=== PATIENT | female | born 1995 | race American Indian/Alaskan Native ===

== ENCOUNTER 2020-02-16 05:31 | Emergency (ER) | payer SELFPAY ==
[2020-02-16 05:39] VITALS: BP 124/71
== END 2020-02-16 05:45 | disposition left against medical advice (07) ==
LOC: ED 05:31
DX: J02.9 Acute pharyngitis, unspecified (principal); Z53.21 Procedure and treatment not carried out due to patient leaving prior to being seen by health care provider

== ENCOUNTER 2020-02-16 14:14 | Emergency (ER) | payer SELFPAY ==
[2020-02-16] MEDS ORDERED: SODIUM CHLORIDE 0.9% 1000 ML 1,000 ML IV ONE ×2 (16:27→18:04)
[2020-02-16] MEDS ORDERED: diphenhydrAMINE 50 MG/ML VIAL IV ONE (16:27)
[2020-02-16] MEDS ORDERED: METOCLOPRAMIDE 10 MG/2 ML INJ IV ONE (16:27)
[2020-02-16] MEDS ORDERED: ONDANSETRON 4 MG/2 ML INJ IV ONE ×2 (16:27→20:35)
[2020-02-16] MEDS ORDERED: FAMOTIDINE 20 MG/2 ML INJ IV ONE (16:31)
[2020-02-16 16:41] LABS: Basophils % (Auto) 0.2 % (0.0-1.8); Eosinophils % (Auto) 0.1 % (0.0-4.3); Hematocrit 40.9 % (30.3-42.9); Hemoglobin 13.6 gm/dl (10.1-14.3); Lymphocytes # (Auto) 1.1 K/mm3 (1.2-5.4); Lymphocytes % (Auto) 18.2 % (13.4-35.0); Mean Corpuscular HGB Conc 33 % (30-34); Mean Corpuscular Volume 91 fl (79-97); Monocytes # (Auto) 0.6 K/mm3 (0.0-0.8); Monocytes % (Auto) 9.8 % (0.0-7.3); Platelet Count 177 K/mm3 (140-440); Red Blood Count 4.51 M/mm3 (3.65-5.03)
[2020-02-16 16:59] LABS: Alanine Aminotransferase 36 units/L (7-56); Albumin 4.7 g/dL (3.9-5); BUN/Creatinine Ratio 33; Blood Urea Nitrogen 26 mg/dL (7-17); Calcium 9.5 mg/dL (8.4-10.2); Hemolysis Index 8
[2020-02-16] MEDS ORDERED: D5W/0.9% NACL 1,000 ML IV SCH ×2 (17:00→21:00)
--- NOTE | 2020-02-16 17:05 | Emergency Department Report ---
ED N/V/D HPI - General Chief complaint: Nausea/Vomiting/Diarrhea Stated complaint: ABD/VOMIT/FEVER Time Seen by Provider: 02/16/20 16:25 Source: patient Mode of arrival: Ambulatory Limitations: No Limitations - History of Present Illness Initial comments: 24-year-old female with a past medical history of previous presents to the hospital with complaints of continued nausea, vomiting, and diarrhea for the past 4 to 5 days. I saw patient yesterday for the same complaint. Patient complains of vomiting with intermittent blood-streaked vomitus, p.o. intolerance despite recently prescribed Phenergan and p.o. Zofran, and continued intermitten t diarrhea. Patient having intermittent suprapubic abdominal pain without aggravating or alleviating factors. Patient also complains of soreness to her throat. No fever reported. Patient states she has not been able to eat anything the last 4 to 5 days - Related Data Home Medications Medication Instructions Recorded Confirmed Last Taken Vit Calc,Iron,Folic 1 each PO DAILY 12/03/15 03/09/16 12/01/15 09:00 [ Vitamins] 1 Previous Rx's Medication Instructions Recorded Last Taken Type Ferrous Sulfate [Feosol 325 MG tab] 325 mg PO BID #60 tablet 03/09/16 Unknown Rx HYDROcodone/APAP 5-325 [[place] 1 each PO Q6HR PRN #30 tablet 03/09/16 Unknown Rx 5/325] Ibuprofen [Motrin] 800 mg PO Q8HR PRN #30 tablet 03/09/16 Unknown Rx Vit Calc,Iron,Folic 1 each PO DAILY #30 tablet 03/09/16 Unknown Rx [ Vitamins] Ondansetron [Zofran Odt] 4 mg PO Q8HR PRN #20 tab.rapdis 02/15/20 Unknown Rx Promethazine [Phenergan] 25 mg [place] Q6HR PRN #20 supp.rect 02/15/20 Unknown Rx Famotidine [Pepcid] 20 mg PO BID #20 tablet 02/17/20 Unknown Rx Ondansetron [Zofran ODT TAB] 8 mg PO Q8HR #14 tab.rapdis 02/17/20 Unknown Rx Potassium Chloride [K-Dur] 20 meq PO QDAY #5 tablet 02/17/20 Unknown Rx Promethazine [Phenergan SUPPOS] 50 mg [place] Q6H PRN #14 supp.rect 02/17/20 Unknown Rx traMADoL [Ultram 50 MG tab] 50 mg PO Q6HR PRN #14 tablet 02/17/20 Unknown Rx Allergies Allergy/AdvReac Type Severity Reaction Status Date / Time No Known Allergies Allergy Verified 12/03/15 07:48 ED Review of Systems ROS: Stated complaint: ABD/VOMIT/FEVER Other details as noted in HPI Comment: All other systems reviewed and negative ED Past Medical Hx - Past Medical History Hx Hypertension: No Hx Heart Attack/AMI: No Hx Congestive Heart Failure: No Hx Diabetes: No Hx Deep Vein Thrombosis: No Hx Renal Disease: No Hx Sickle Cell Disease: No Hx Seizures: No Hx Asthma: No Hx COPD: No Hx HIV: No - Surgical History Additional Surgical History: - Social History Smoking Status: Never Smoker - Medications Home Medications: Home Medications Medication Instructions Recorded Confirmed Last Taken Type Vit Calc,Iron,Folic 1 each PO DAILY 12/03/15 03/09/16 12/01/15 09:00 History [ Vitamins] 1 Ferrous Sulfate [Feosol 325 MG tab] 325 mg PO BID #60 tablet 03/09/16 Unknown Rx HYDROcodone/APAP 5-325 [[place] 1 each PO Q6HR PRN #30 tablet 03/09/16 Unknown Rx 5/325] Ibuprofen [Motrin] 800 mg PO Q8HR PRN #30 tablet 03/09/16 Unknown Rx Vit Calc,Iron,Folic 1 each PO DAILY #30 tablet 03/09/16 Unknown Rx [ Vitamins] Ondansetron [Zofran Odt] 4 mg PO Q8HR PRN #20 tab.rapdis 02/15/20 Unknown Rx Promethazine [Phenergan] 25 mg [place] Q6HR PRN #20 supp.rect 02/15/20 Unknown Rx Famotidine [Pepcid] 20 mg PO BID #20 tablet 02/17/20 Unknown Rx Ondansetron [Zofran ODT TAB] 8 mg PO Q8HR #14 tab.rapdis 02/17/20 Unknown Rx Potassium Chloride [K-Dur] 20 meq PO QDAY #5 tablet 02/17/20 Unknown Rx Promethazine [Phenergan SUPPOS] 50 mg [place] Q6H PRN #14 supp.rect 02/17/20 Unknown Rx traMADoL [Ultram 50 MG tab] 50 mg PO Q6HR PRN #14 tablet 02/17/20 Unknown Rx ED Physical Exam - General Limitations: No Limitations - Other Other exam information: General: No acute distress Head: Atraumatic Eyes: normal appearance ENT: Moist mucous membranes Neck: Normal appearance, no midline tenderness Chest: Clear to auscultation bilaterally CV: Bradycardic regular rate Abdomen: Soft, normal bowel sounds, minimal suprapubic tenderness, nondistended, no rebound or guarding Back: Normal inspection Extremity: Normal inspection, full range of motion Neuro: Alert O x 3, no facial asymmetry, speech clear, no gross motor sensory deficit Psych: Appropriate behavior Skin: No rash ED Course Vital Signs 02/16/20 02/16/20 02/16/20 14:30 15:42 17:04 Temperature 98.1 F Pulse Rate 43 L 50 L 69 Respiratory 20 16 16 Rate Blood Pressure 127/65 Blood Pressure 133/65 124/82 [Left] O2 Sat by Pulse 97 96 97 Oximetry 02/16/20 02/16/20 19:45 23:18 Temperature Pulse Rate 50 L 50 L Respiratory 18 18 Rate Blood Pressure Blood Pressure 118/56 110/49 [Left] O2 Sat by Pulse 99 97 Oximetry ED Medical Decision Making - Lab Data Result diagrams: 02/16/20 16:29 02/16/20 16:29 Lab Results 02/16/20 02/16/20 02/16/20 Range/Units 16:29 16:29 16:29 WBC 5.9 (4.5-11.0) K/mm3 RBC 4.51 (3.65-5.03) M/mm3 Hgb 13.6 (10.1-14.3) gm/dl Hct 40.9 (30.3-42.9) % MCV 91 (79-97) fl MCH 30 (28-32) pg MCHC 33 (30-34) % RDW 14.0 (13.2-15.2) % Plt Count 177 (140-440) K/mm3 Lymph % (Auto) 18.2 (13.4-35.0) % [place] % (Auto) 9.8 H (0.0-7.3) % Eos % (Auto) 0.1 (0.0-4.3) % Baso % (Auto) 0.2 (0.0-1.8) % Lymph # 1.1 L (1.2-5.4) K/mm3 [place] # 0.6 (0.0-0.8) K/mm3 Eos # 0.0 (0.0-0.4) K/mm3 Baso # 0.0 (0.0-0.1) K/mm3 Seg Neutrophils % 71.7 H (40.0-70.0) % Seg Neutrophils # 4.2 (1.8-7.7) K/mm3 Sodium 139 (137-145) mmol/L Potassium 3.1 L (3.6-5.0) mmol/L Chloride 97.5 L (98-107) mmol/L Carbon Dioxide 28 (22-30) mmol/L Anion Gap 17 mmol/L BUN 26 H (7-17) mg/dL Creatinine 0.8 (0.7-1.2) mg/dL Estimated GFR > 60 ml/min BUN/Creatinine Ratio 33 % Glucose 95 (65-100) mg/dL Calcium 9.5 (8.4-10.2) mg/dL Magnesium (1.7-2.3) mg/dL Total Bilirubin 1.20 (0.1-1.2) mg/dL AST 41 H (5-40) units/L ALT 36 (7-56) units/L Alkaline Phosphatase 66 (35-129) units/L Total Protein 8.2 (6.3-8.2) g/dL Albumin 4.7 (3.9-5) g/dL Albumin/Globulin Ratio 1.3 % Lipase 22 (13-60) units/L HCG, Qual Negative (Negative) Urine Color (Yellow) Urine Turbidity (Clear) Urine pH (5.0-7.0) Ur Specific [place] (1.003-1.030) Urine Protein (Negative) mg/dL Urine Glucose (UA) (Negative) mg/dL Urine Ketones (Negative) mg/dL Urine Blood (Negative) Urine Nitrite (Negative) Urine Bilirubin (Negative) Urine Urobilinogen (<2.0) mg/dL Ur Leukocyte Esterase (Negative) Urine WBC (Auto) (0.0-6.0) /HPF Urine RBC (Auto) (0.0-6.0) /HPF U Epithel Cells (Auto) (0-13.0) /HPF Urine Mucus /HPF 02/16/20 02/16/20 Range/Units 16:34 19:44 WBC (4.5-11.0) K/mm3 RBC (3.65-5.03) M/mm3 Hgb (10.1-14.3) gm/dl Hct (30.3-42.9) % MCV (79-97) fl MCH (28-32) pg MCHC (30-34) % RDW (13.2-15.2) % Plt Count (140-440) K/mm3 Lymph % (Auto) (13.4-35.0) % [place] % (Auto) (0.0-7.3) % Eos % (Auto) (0.0-4.3) % Baso % (Auto) (0.0-1.8) % Lymph # (1.2-5.4) K/mm3 [place] # (0.0-0.8) K/mm3 Eos # (0.0-0.4) K/mm3 Baso # (0.0-0.1) K/mm3 Seg Neutrophils % (40.0-70.0) % Seg Neutrophils # (1.8-7.7) K/mm3 Sodium (137-145) mmol/L Potassium (3.6-5.0) mmol/L Chloride (98-107) mmol/L Carbon Dioxide (22-30) mmol/L Anion Gap mmol/L BUN (7-17) mg/dL Creatinine (0.7-1.2) mg/dL Estimated GFR ml/min BUN/Creatinine Ratio % Glucose (65-100) mg/dL Calcium (8.4-10.2) mg/dL Magnesium 2.30 (1.7-2.3) mg/dL Total Bilirubin (0.1-1.2) mg/dL AST (5-40) units/L ALT (7-56) units/L Alkaline Phosphatase (35-129) units/L Total Protein (6.3-8.2) g/dL Albumin (3.9-5) g/dL Albumin/Globulin Ratio % Lipase (13-60) units/L HCG, Qual (Negative) Urine Color Yellow (Yellow) Urine Turbidity Clear (Clear) Urine pH 7.0 (5.0-7.0) Ur Specific [place] 1.015 (1.003-1.030) Urine Protein <15 mg/dl (Negative) mg/dL Urine Glucose (UA) 50 (Negative) mg/dL Urine Ketones 20 (Negative) mg/dL Urine Blood Neg (Negative) Urine Nitrite Neg (Negative) Urine Bilirubin Neg (Negative) Urine Urobilinogen < 2.0 (<2.0) mg/dL Ur Leukocyte Esterase Neg (Negative) Urine WBC (Auto) 2.0 (0.0-6.0) /HPF Urine RBC (Auto) 2.0 (0.0-6.0) /HPF U Epithel Cells (Auto) 14.0 H (0-13.0) /HPF Urine Mucus Few /HPF - EKG Data -: EKG Interpreted by Me EKG shows normal: sinus rhythm, ST-T waves (no stemi) Rate: bradycardia (39) - Radiology Data Radiology results: report reviewed CT abdomen pelvis w con INDICATION: MAIN: intactable n,v 100cc Omni 300. TECHNIQUE: All CT scans at this location are performed using CT dose reduction for ALARA by means of automated exposure control. COMPARISON: None available. FINDINGS: Lung bases are clear. Gallbladder is contracted, with no obvious stones. Liver, spleen, pancreas, kidneys and adrenals are negative. Abdominal aorta is normal in size. No adenopathy. Pelvis Appendix is thought to be identified and unremarkable. 2 cm left ovarian cyst. 4.5 cm cyst in the posterior pelvis, probably right ovarian cyst. No significant free fluid. Cervix appears quite prominent. Fluid density in the endometrial canal, measuring 2.1 cm diameter. No bowel abnormalities. IMPRESSION: 1. 4.5 cm cystic mass in the posterior pelvis, possibly right ovarian cyst, but this is associated with very prominent cervix, with a prominent and fluid-filled endometrium. I would suggest pelvic ultrasound for further evaluation. ULTRASOUND PELVIS INDICATION / CLINICAL INFORMATION: Nausea, vomiting, diarrhea, pelvic pain. TECHNIQUE: Transabdominal and Transvaginal. Duplex Color Doppler used: Yes. COMPARISON: Same-day CT scan of the abdomen and pelvis FINDINGS: UTERUS: Present. - Appearance (if present): No significant abnormality. - Size in cm (if present): 8.8 x 4.3 x 4.7. - Endometrial Complex (if present): No significant abnormality.. Thickness in cm (if measured) = 0.6 - Mass lesions: None. - Additional findings: None. RIGHT ADNEXA: There are multiple normal follicles. Also a 5.2 x 3.5 x 4.7 cm thin-walled cyst with posterior acoustic enhancement and no significant internal echoes. Normal color Doppler blood flow. LEFT ADNEXA: Multiple normal small follicles are present. Normal color Doppler blood flow. FREE FLUID: None. ADDITIONAL FINDINGS: None. IMPRESSION: 1. Simple appearing cyst associated with the right ovary measures 5.2 cm in greatest dimension, likely physiologic in this young female patient. 2. No other significant abnormality. - Medical Decision Making Patient was treated in the ED for an extended amount of time greater than 10 hours received several liters of normal saline, several liters of normal saline D5, multiple antiemetics, Pepcid, p.o. and IV potassium. At time of discharge patient states that she is feeling well and is drinking fluids without difficulty. She was offered a turkey sandwich she however, she prefers to eat something softer and we do not have any other food options at this time. She did tolerate crackers. Patient offered admission if she still felt nauseated and was hesitant and wants to go home. Patient declined admission stating she feels well enough to go home. She will continue to Phenergan per ER and will be prescribed to increase dosage. She was also encouraged to take Zofran 8 mg instead of the recently prescribed 4 mg. Pepcid and KCL will also be prescribed. Pt informed of ovarian cyst (likely physiologic incidental finding) and f/u with letterpress setter advised. - Differential Diagnosis Gastroenteritis, pancreatitis, UTI, diverticulitis, appendicitis Critical Care Time: No Critical care attestation.: If time is entered above; I have spent that time in minutes in the direct care of this critically ill patient, excluding procedure time. ED Disposition Clinical Impression: Gastroenteritis, Hypokalemia, Dehydration, Right ovarian cyst Disposition: DC-01 TO HOME OR SELFCARE Is pt being admited?: No Does the pt Need Aspirin: No Condition: Stable Instructions: Ovarian Cyst (ED), Hypokalemia (ED), Gastroenteritis (ED) Additional Instructions: Take the medication as prescribed. I have increased the dose of you Zofran and Phenergan and have written for new prescriptions. In the meantime you can double your Zofran (take 8mg/2 tabs at a time) and Phenergan (take 50mg/2 suppositories) doses until you fill the new prescription. Follow-up with your doctor or doctor/clinic provided. Return if symptoms worsen as indicated by your discharge instructions. Prescriptions: Potassium Chloride [K-Dur] 20 meq PO QDAY #5 tablet Famotidine [Pepcid] 20 mg PO BID #20 tablet Promethazine [Phenergan SUPPOS] 50 mg [place] Q6H PRN #14 supp.rect PRN Reason: Nausea And Vomiting traMADoL [Ultram 50 MG tab] 50 mg PO Q6HR PRN #14 tablet PRN Reason: Pain Ondansetron [Zofran ODT TAB] 8 mg PO Q8HR #14 tab.rapdis Referrals: PRIMARY CARE, [Primary Care Provider] - 3-5 Days [facility] [Provider Group] - 3-5 Days KIMI CARDOZA MD [Staff Physician] - 3-5 Days (GI doctor ) PREMA LUNA MD [Staff Physician] - 7-10 days ([facility] ) Time of Disposition: 00:57
[2020-02-16] MEDS: POTASSIUM CHLORIDE 10 MEQ 10 MEQ/100 ML BAG IV SCH ×3 (17:32→21:09)
--- NOTE | 2020-02-16 18:24 | Cat Scan Report ---
CT abdomen pelvis w con INDICATION: MAIN: intactable n,v 100cc Omni 300. TECHNIQUE: All CT scans at this location are performed using CT dose reduction for ALARA by means of automated e xposure control. COMPARISON: None available. FINDINGS: Lung bases are clear. Gallbladder is contracted, with no obvious stones. Liver, spleen, pancreas, kid neys and adrenals are negative. Abdominal aorta is normal in size. No adenopathy. Pelvis Appendix is thought to be identified and unremarkable. 2 cm left ovarian cyst. 4.5 cm cyst in the pos terior pelvis, probably right ovarian cyst. No significant free fluid. Cervix appears quite prominent . Fluid density in the endometrial canal, measuring 2.1 cm diameter. No bowel abnormalities. IMPRESSION: 1. 4.5 cm cystic mass in the posterior pelvis, possibly right ovarian cyst, but this is associated wi th very prominent cervix, with a prominent and fluid-filled endometrium. I would suggest pelvic ultra sound for further evaluation. Signer Name: Lawrence Forde MD Signed: 02/16/2020 6:20 PM Workstation Name: [id number]
[2020-02-16 20:16] LABS: Bilirubin,Urine NEG (Negative); Blood,Urine NEG (Negative); Color,Urine Yellow (Yellow); Mucus,Urine FEW /HPF; Protein,Urine <15 mg/dL mg/dL (Negative); Urobilinogen,Urine < 2.0 mg/dL (<2.0)
[2020-02-16] MEDS ORDERED: PROMETHAZINE 25 MG TAB PO ONE (20:35)
--- NOTE | 2020-02-16 21:33 | Ultrasound Report ---
ULTRASOUND PELVIS INDICATION / CLINICAL INFORMATION: Nausea, vomiting, diarrhea, pelvic pain. TECHNIQUE: Transabdominal and Transvaginal. Duplex Color Doppler used: Yes. COMPARISON: Same-day CT scan of the abdomen and pelvis FINDINGS: UTERUS: Present. - Appearance (if present): No significant abnormality. - Size in cm (if present): 8.8 x 4.3 x 4.7. - Endometrial Complex (if present): No significant abnormality.. Thickness in cm (if measured) = 0.6 - Mass lesions: None. - Additional findings: None. RIGHT ADNEXA: There are multiple normal follicles. Also a 5.2 x 3.5 x 4.7 cm thin-walled cyst with po sterior acoustic enhancement and no significant internal echoes. Normal color Doppler blood flow. LEFT ADNEXA: Multiple normal small follicles are present. Normal color Doppler blood flow. FREE FLUID: None. ADDITIONAL FINDINGS: None. IMPRESSION: 1. Simple appearing cyst associated with the right ovary measures 5.2 cm in greatest dimension, likel y physiologic in this young female patient. 2. No other significant abnormality. Signer Name: Andrea De Santiago MD Signed: 02/16/2020 9:28 PM Workstation Name: [id number]
[2020-02-16] MEDS ORDERED: POTASSIUM CHLORIDE ER 20 MEQ TAB PO ONE (23:16)
[2020-02-17] MEDS ORDERED: METOCLOPRAMIDE 10 MG/2 ML INJ IV ONE (01:14)
[2020-02-17] MEDS ORDERED: diphenhydrAMINE 50 MG/ML VIAL IV ONE (01:14)
[2020-02-17 01:28] VITALS: BP 115/62
== END 2020-02-17 01:27 | disposition home or self-care (01) ==
LOC: ED 14:14
DX: K21.9 Gastro-esophageal reflux disease without esophagitis (principal); E86.0 Dehydration; E87.6 Hypokalemia; N83.291 Other ovarian cyst, right side; Z98.890 Other specified postprocedural states; Z79.899 Other long term (current) drug therapy
CPT/HCPCS: 36415; 74177; 76830; 76856; 80053; 81001; 83690; 83735; 84703; 85025; 93005; 96361; 96365; 96366; 96375; 96376; 99284; J1200; J2405; J2765; J3480; J7030; J7042; Q0169; Q9967; 96374

== ENCOUNTER 2020-09-04 14:31 | Emergency (ER) | payer SELFPAY ==
[2020-09-04 14:35] VITALS: BP 135/84
== END 2020-09-04 17:45 | disposition left against medical advice (07) ==
LOC: ED 14:31
DX: R07.89 Other chest pain (principal); Z53.21 Procedure and treatment not carried out due to patient leaving prior to being seen by health care provider

== ENCOUNTER 2020-09-05 04:59 | Emergency (ER) | payer SELFPAY ==
[2020-09-05 05:46] LABS: Basophils % (Auto) 0.2 % (0.0-1.8); Hematocrit 40.8 % (30.3-42.9); Hemoglobin 14.3 gm/dl (10.1-14.3); Lymphocytes # (Auto) 0.8 K/mm3 (1.2-5.4); Lymphocytes % (Auto) 8.8 % (13.4-35.0); Mean Corpuscular HGB Conc 35 % (30-34); Mean Corpuscular Volume 88 fl (79-97); Monocytes # (Auto) 0.4 K/mm3 (0.0-0.8); Monocytes % (Auto) 4.6 % (0.0-7.3); Platelet Count 265 K/mm3 (140-440); Red Blood Count 4.64 M/mm3 (3.65-5.03); Red Cell Distribution Width 13.3 % (13.2-15.2)
[2020-09-05 06:01] LABS: Alanine Aminotransferase 22 units/L (7-56); Albumin 5.3 g/dL (3.9-5); BUN/Creatinine Ratio 24; Blood Urea Nitrogen 22 mg/dL (7-17); Calcium 10.8 mg/dL (8.4-10.2); Hemolysis Index 8
[2020-09-05] MEDS ORDERED: MORPHINE 4 MG/1 ML INJ IV ONE (08:36)
[2020-09-05] MEDS ORDERED: PANTOPRAZOLE 40 MG INJ IV ONE (08:36)
[2020-09-05] MEDS ORDERED: ONDANSETRON 4 MG/2 ML INJ IV ONE (08:36)
[2020-09-05] MEDS ORDERED: diphenhydrAMINE 50 MG/ML VIAL IV ONE (10:13)
--- NOTE | 2020-09-05 10:20 | Emergency Department Report ---
ED Abdominal Pain HPI - General Chief Complaint: Nausea/Vomiting/Diarrhea Stated Complaint: CHEST PAIN, POSS CYST ON OVARIES PUI?: No Time Seen by Provider: 09/05/20 08:32 Source: patient, EMS Mode of arrival: Ambulatory Limitations: No Limitations - History of Present Illness Initial Comments: CC: chest pain, abdominal cramping HPI: THis is a 25 yo female with hx of ovarian cyst who presents with several days of burning chest pain, vomiting blood and stomach cramps. SYmptoms began 3 days ago. Has burning chest pain worse with vomiting. No radiation. Intermittent. Diffuse abdominal mild cramping. intermittent. No radiation. Has had poor appetitet. MD Complaint: abdominal pain -: Gradual, days(s) (3) Location: diffuse Radiation: chest Migration to: no migration Severity: mild Severity scale (0 -10): 10 Quality: cramping, burning Consistency: intermittent Improves With: nothing Worsens With: eating Associated Symptoms: nausea, vomiting, hematemesis - Related Data Home Medications Medication Instructions Recorded Confirmed Last Taken Vit Calc,Iron,Folic 1 each PO DAILY 12/03/15 03/09/16 12/01/15 09:00 [ Vitamins] 1 Previous Rx's Medication Instructions Recorded Last Taken Type Ferrous Sulfate [Feosol 325 MG tab] 325 mg PO BID #60 tablet 03/09/16 Unknown Rx HYDROcodone/APAP 5-325 [[place] 1 each PO Q6HR PRN #30 tablet 03/09/16 Unknown Rx 5/325] Ibuprofen [Motrin] 800 mg PO Q8HR PRN #30 tablet 03/09/16 Unknown Rx Vit Calc,Iron,Folic 1 each PO DAILY #30 tablet 03/09/16 Unknown Rx [ Vitamins] Ondansetron [Zofran Odt] 4 mg PO Q8HR PRN #20 tab.rapdis 02/15/20 Unknown Rx Promethazine [Phenergan] 25 mg [place] Q6HR PRN #20 supp.rect 02/15/20 Unknown Rx Famotidine [Pepcid] 20 mg PO BID #20 tablet 02/17/20 Unknown Rx Ondansetron [Zofran ODT TAB] 8 mg PO Q8HR #14 tab.rapdis 02/17/20 Unknown Rx Potassium Chloride [K-Dur] 20 meq PO QDAY #5 tablet 04/24/20 Unknown Rx Promethazine [Phenergan SUPPOS] 50 mg [place] Q6H PRN #14 supp.rect 02/17/20 Unknown Rx traMADoL [Ultram 50 MG tab] 50 mg PO Q6HR PRN #14 tablet 02/17/20 Unknown Rx Famotidine [Pepcid] 20 mg PO BID 15 Days #30 tablet 09/05/20 Unknown Rx Promethazine [Phenergan] 25 mg PO Q6HR PRN #10 tab 09/05/20 Unknown Rx Allergies Allergy/AdvReac Type Severity Reaction Status Date / Time No Known Allergies Allergy Verified 12/03/15 07:48 ED Review of Systems ROS: Stated complaint: CHEST PAIN, POSS CYST ON OVARIES Other details as noted in HPI Comment: All other systems reviewed and negative Constitutional: denies: fever, malaise Cardiovascular: chest pain Gastrointestinal: abdominal pain, nausea, vomiting, hematemesis ED Past Medical Hx - Past Medical History Previous Medical History?: Yes Hx Hypertension: No Hx Heart Attack/AMI: No Hx Congestive Heart Failure: No Hx Diabetes: No Hx Deep Vein Thrombosis: No Hx Renal Disease: No Hx Sickle Cell Disease: No Hx Seizures: No Hx Asthma: No Hx COPD: No Hx HIV: No Additional medical history: ovarian cyst - Surgical History Additional Surgical History: - Social History Smoking Status: Never Smoker Substance Use Type: None - Medications Home Medications: Home Medications Medication Instructions Recorded Confirmed Last Taken Type Vit Calc,Iron,Folic 1 each PO DAILY 12/03/15 03/09/16 12/01/15 09:00 History [ Vitamins] 1 Ferrous Sulfate [Feosol 325 MG tab] 325 mg PO BID #60 tablet 03/09/16 Unknown Rx HYDROcodone/APAP 5-325 [[place] 1 each PO Q6HR PRN #30 tablet 03/09/16 Unknown Rx 5/325] Ibuprofen [Motrin] 800 mg PO Q8HR PRN #30 tablet 03/09/16 Unknown Rx Vit Calc,Iron,Folic 1 each PO DAILY #30 tablet 03/09/16 Unknown Rx [ Vitamins] Ondansetron [Zofran Odt] 4 mg PO Q8HR PRN #20 tab.rapdis 02/15/20 Unknown Rx Promethazine [Phenergan] 25 mg [place] Q6HR PRN #20 supp.rect 04/22/20 Unknown Rx Famotidine [Pepcid] 20 mg PO BID #20 tablet 02/17/20 Unknown Rx Ondansetron [Zofran ODT TAB] 8 mg PO Q8HR #14 tab.rapdis 02/17/20 Unknown Rx Potassium Chloride [K-Dur] 20 meq PO QDAY #5 tablet 02/17/20 Unknown Rx Promethazine [Phenergan SUPPOS] 50 mg [place] Q6H PRN #14 supp.rect 02/17/20 Unknown Rx traMADoL [Ultram 50 MG tab] 50 mg PO Q6HR PRN #14 tablet 02/17/20 Unknown Rx Famotidine [Pepcid] 20 mg PO BID 15 Days #30 tablet 09/05/20 Unknown Rx Promethazine [Phenergan] 25 mg PO Q6HR PRN #10 tab 09/05/20 Unknown Rx ED Physical Exam - General Limitations: No Limitations General appearance: alert, in no apparent distress - Head Head exam: Present: atraumatic, normocephalic - Eye Eye exam: Present: normal appearance - ENT ENT exam: Present: mucous membranes moist - Neck Neck exam: Present: normal inspection, full ROM - Respiratory Respiratory exam: Present: normal lung sounds bilaterally. Absent: respiratory distress, wheezes, rales, rhonchi - Cardiovascular Cardiovascular Exam: Present: regular rate, normal rhythm, normal heart sounds. Absent: systolic murmur, diastolic murmur, rubs, gallop - GI/Abdominal GI/Abdominal exam: Present: soft, normal bowel sounds. Absent: distended, tenderness, guarding, rebound - Extremities Exam Extremities exam: Present: normal inspection - Neurological Exam Neurological exam: Present: alert, oriented X3 - Psychiatric Psychiatric exam: Present: normal affect, normal mood - Skin Skin exam: Present: warm, dry, intact, normal color. Absent: rash ED Course Vital Signs 09/05/20 05:11 Temperature 98.1 F Pulse Rate 51 L Respiratory 16 Rate Blood Pressure 120/72 O2 Sat by Pulse 94 Oximetry ED Medical Decision Making - Lab Data Result diagrams: 09/05/20 05:23 09/05/20 05:23 Laboratory Results - last 24 hr 09/05/20 09/05/20 09/05/20 05:23 05:23 05:23 WBC 9.2 RBC 4.64 Hgb 14.3 Hct 40.8 MCV 88 MCH 31 MCHC 35 H RDW 13.3 Plt Count 265 Lymph % (Auto) 8.8 L [place] % (Auto) 4.6 Eos % (Auto) 0.0 Baso % (Auto) 0.2 Lymph # (Auto) 0.8 L [place] # (Auto) 0.4 Eos # (Auto) 0.0 Baso # (Auto) 0.0 Seg Neutrophils % 86.4 H Seg Neutrophils # 7.9 H Sodium 138 Potassium 3.6 Chloride 100.8 Carbon Dioxide 24 Anion Gap 17 BUN 22 H Creatinine 0.9 Estimated GFR > 60 BUN/Creatinine Ratio 24 Glucose 163 H Calcium 10.8 H Total Bilirubin 0.60 AST 22 ALT 22 Alkaline Phosphatase 79 Total Protein 9.1 H Albumin 5.3 H Albumin/Globulin Ratio 1.4 Lipase 12 L HCG, Qual Negative - Medical Decision Making Ms. Hobson is a 25-year-old female with history ovarian cyst who presents with chest burning, reported hematemesis, abdominal cramping. I do not suspect life-threatening causes of chest pain. Patient is PERC negative. Normal vital signs. Clear breath sounds. I suspect GERD esophagitis. Patient able for hematemesis. No observed vomiting in the emergency department over the course of 5 hours. Patient tolerated juice after receiving medication. I do not suspect significant upper GI bleed. Diffuse nonspecific abdominal cramping. No fever or abdominal tenderness to indicate peritonitis. No leukocytosis. I do not suspect emergent causes such as ovarian torsion or appendicitis. Patient prescribed famotidine promethazine. She understands follow-up with our outpatient medicine physician. CBC chemistry within normal limits. Serum test negative Critical care attestation.: If time is entered above; I have spent that time in minutes in the direct care of this critically ill patient, excluding procedure time. ED Disposition Clinical Impression: GERD (gastroesophageal reflux disease), Abdominal pain Disposition: DC-01 TO HOME OR SELFCARE Is pt being admited?: No Does the pt Need Aspirin: No Condition: Stable Instructions: Heartburn, [id number], Abdominal Pain, Adult Prescriptions: Famotidine [Pepcid] 20 mg PO BID 15 Days #30 tablet Promethazine [Phenergan] 25 mg PO Q6HR PRN #10 tab PRN Reason: Nausea
[2020-09-05 10:40] VITALS: BP 112/65
== END 2020-09-05 10:42 | disposition home or self-care (01) ==
LOC: ED 04:59
DX: K21.9 Gastro-esophageal reflux disease without esophagitis (principal); Z79.899 Other long term (current) drug therapy
CPT/HCPCS: 36415; 80053; 83690; 84703; 85025; 96374; 96375; 99284; C9113; J1200; J2270; J2405

== ENCOUNTER 2020-09-06 08:38 | Emergency (ER) | payer SELFPAY ==
[2020-09-06 09:02] VITALS: BP 110/75
[2020-09-06] MEDS ORDERED: SODIUM CHLORIDE 0.9% 1000 ML 1,000 ML IV ONE (14:53)
[2020-09-06] MEDS ORDERED: METOCLOPRAMIDE 10 MG/2 ML INJ IV ONE (14:53)
[2020-09-06] MEDS ORDERED: diphenhydrAMINE 50 MG/ML VIAL IV ONE (14:53)
[2020-09-06 16:11] LABS: Basophils % (Auto) 0.2 % (0.0-1.8); Hematocrit 43.9 % (30.3-42.9); Hemoglobin 14.6 gm/dl (10.1-14.3); Lymphocytes # (Auto) 1.1 K/mm3 (1.2-5.4); Lymphocytes % (Auto) 13.4 % (13.4-35.0); Mean Corpuscular HGB Conc 33 % (30-34); Mean Corpuscular Volume 91 fl (79-97); Monocytes # (Auto) 0.8 K/mm3 (0.0-0.8); Monocytes % (Auto) 8.8 % (0.0-7.3); Platelet Count 222 K/mm3 (140-440); Red Blood Count 4.81 M/mm3 (3.65-5.03); Red Cell Distribution Width 13.3 % (13.2-15.2)
[2020-09-06 16:29] LABS: Alanine Aminotransferase 18 units/L (7-56); Albumin 4.2 g/dL (3.9-5); BUN/Creatinine Ratio 20; Blood Urea Nitrogen 24 mg/dL (7-17); Calcium 9.3 mg/dL (8.4-10.2); Hemolysis Index 8
--- NOTE | 2020-09-06 16:35 | Emergency Department Report ---
ED N/V/D HPI - General Chief complaint: Syncope Stated complaint: WEAKNESS, VOMITING Time Seen by Provider: 09/06/20 14:21 Source: patient, EMS Mode of arrival: Ambulatory Limitations: No Limitations - History of Present Illness Initial comments: Patient is a 25-year-old female presents emergency room with complaints of nausea, vomiting, diarrhea that began 3 days ago. She states that she has been taking Phenergan at home without much relief. She states that she has some mild abdominal cramping but denies any sharp pain. She denies any recent travel, sick contacts, recent antibiotics. She denies any fever, urinary symptoms, abnormal vaginal discharge, hematoemesis, hematochezia, melena. No past medical history. No allergies medications. She states that she has had the same exact symptoms previously in March and her symptoms improved after she received IV fluids and medications per patient. - Related Data Home Medications Medication Instructions Recorded Confirmed Last Taken Vit Calc,Iron,Folic 1 each PO DAILY 12/03/15 03/09/16 12/01/15 09:00 [ Vitamins] 1 Previous Rx's Medication Instructions Recorded Last Taken Type Ferrous Sulfate [Feosol 325 MG tab] 325 mg PO BID #60 tablet 03/09/16 Unknown Rx HYDROcodone/APAP 5-325 [[place] 1 each PO Q6HR PRN #30 tablet 03/09/16 Unknown Rx 5/325] Ibuprofen [Motrin] 800 mg PO Q8HR PRN #30 tablet 03/09/16 Unknown Rx Vit Calc,Iron,Folic 1 each PO DAILY #30 tablet 03/09/16 Unknown Rx [ Vitamins] Ondansetron [Zofran Odt] 4 mg PO Q8HR PRN #20 tab.rapdis 02/15/20 Unknown Rx Promethazine [Phenergan] 25 mg [place] Q6HR PRN #20 supp.rect 02/15/20 Unknown Rx Famotidine [Pepcid] 20 mg PO BID #20 tablet 02/17/20 Unknown Rx Ondansetron [Zofran ODT TAB] 8 mg PO Q8HR #14 tab.rapdis 02/17/20 Unknown Rx Potassium Chloride [K-Dur] 20 meq PO QDAY #5 tablet 02/17/20 Unknown Rx Promethazine [Phenergan SUPPOS] 50 mg [place] Q6H PRN #14 supp.rect 02/17/20 Unknown Rx traMADoL [Ultram 50 MG tab] 50 mg PO Q6HR PRN #14 tablet 02/17/20 Unknown Rx Famotidine [Pepcid] 20 mg PO BID 15 Days #30 tablet 09/05/20 Unknown Rx Promethazine [Phenergan] 25 mg PO Q6HR PRN #10 tab 09/05/20 Unknown Rx Allergies Allergy/AdvReac Type Severity Reaction Status Date / Time No Known Allergies Allergy Verified 12/03/15 07:48 ED Review of Systems ROS: Stated complaint: WEAKNESS, VOMITING Other details as noted in HPI Comment: All other systems reviewed and negative ED Past Medical Hx - Past Medical History Previous Medical History?: No Hx Hypertension: No Hx Heart Attack/AMI: No Hx Congestive Heart Failure: No Hx Diabetes: No Hx Deep Vein Thrombosis: No Hx Renal Disease: No Hx Sickle Cell Disease: No Hx Seizures: No Hx Asthma: No Hx COPD: No Hx HIV: No Additional medical history: ovarian cyst - Surgical History Past Surgical History?: Yes Additional Surgical History: - Social History Smoking Status: Never Smoker Substance Use Type: None - Medications Home Medications: Home Medications Medication Instructions Recorded Confirmed Last Taken Type Vit Calc,Iron,Folic 1 each PO DAILY 12/03/15 03/09/16 12/01/15 09:00 History [ Vitamins] 1 Ferrous Sulfate [Feosol 325 MG tab] 325 mg PO BID #60 tablet 03/09/16 Unknown Rx HYDROcodone/APAP 5-325 [[place] 1 each PO Q6HR PRN #30 tablet 03/09/16 Unknown Rx 5/325] Ibuprofen [Motrin] 800 mg PO Q8HR PRN #30 tablet 03/09/16 Unknown Rx Vit Calc,Iron,Folic 1 each PO DAILY #30 tablet 03/09/16 Unknown Rx [ Vitamins] Ondansetron [Zofran Odt] 4 mg PO Q8HR PRN #20 tab.rapdis 02/15/20 Unknown Rx Promethazine [Phenergan] 25 mg MO Q6HR PRN #20 supp.rect 02/15/20 Unknown Rx Famotidine [Pepcid] 20 mg PO BID #20 tablet 02/17/20 Unknown Rx Ondansetron [Zofran ODT TAB] 8 mg PO Q8HR #14 tab.rapdis 02/17/20 Unknown Rx Potassium Chloride [K-Dur] 20 meq PO QDAY #5 tablet 02/17/20 Unknown Rx Promethazine [Phenergan SUPPOS] 50 mg MO Q6H PRN #14 supp.rect 02/17/20 Unknown Rx traMADoL [Ultram 50 MG tab] 50 mg PO Q6HR PRN #14 tablet 02/17/20 Unknown Rx Famotidine [Pepcid] 20 mg PO BID 15 Days #30 tablet 09/05/20 Unknown Rx Promethazine [Phenergan] 25 mg PO Q6HR PRN #10 tab 09/05/20 Unknown Rx ED Physical Exam - General Limitations: No Limitations General appearance: alert, in no apparent distress - Head Head exam: Present: atraumatic, normocephalic - Eye Eye exam: Present: normal appearance - ENT ENT exam: Present: mucous membranes moist - Respiratory Respiratory exam: Present: normal lung sounds bilaterally. Absent: respiratory distress, wheezes, rales, rhonchi, stridor, chest wall tenderness, accessory muscle use, decreased breath sounds, prolonged expiratory - Cardiovascular Cardiovascular Exam: Present: regular rate, normal rhythm, normal heart sounds. Absent: systolic murmur, diastolic murmur, rubs, gallop - GI/Abdominal GI/Abdominal exam: Present: soft, normal bowel sounds. Absent: distended, tenderness, guarding, rebound, rigid - Neurological Exam Neurological exam: Present: alert, oriented X3 - Psychiatric Psychiatric exam: Present: normal affect, normal mood - Skin Skin exam: Present: warm, dry, intact ED Course Vital Signs 09/06/20 09/06/20 09:01 16:27 Temperature 98.3 F Pulse Rate 52 L Respiratory 20 18 Rate Blood Pressure 110/75 [Right] O2 Sat by Pulse 100 Oximetry ED Medical Decision Making - Lab Data Result diagrams: 09/06/20 15:41 09/06/20 15:41 Lab Results 09/06/20 09/06/20 09/06/20 Range/Units 15:41 15:41 15:41 WBC 8.6 (4.5-11.0) K/mm3 RBC 4.81 (3.65-5.03) M/mm3 Hgb 14.6 H (10.1-14.3) gm/dl Hct 43.9 H (30.3-42.9) % MCV 91 (79-97) fl MCH 30 (28-32) pg MCHC 33 (30-34) % RDW 13.3 (13.2-15.2) % Plt Count 222 (140-440) K/mm3 Lymph % (Auto) 13.4 (13.4-35.0) % [place] % (Auto) 8.8 H (0.0-7.3) % Eos % (Auto) 0.0 (0.0-4.3) % Baso % (Auto) 0.2 (0.0-1.8) % Lymph # (Auto) 1.1 L (1.2-5.4) K/mm3 [place] # (Auto) 0.8 (0.0-0.8) K/mm3 Eos # (Auto) 0.0 (0.0-0.4) K/mm3 Baso # (Auto) 0.0 (0.0-0.1) K/mm3 Seg Neutrophils % 77.6 H (40.0-70.0) % Seg Neutrophils # 6.7 (1.8-7.7) K/mm3 Sodium 141 (137-145) mmol/L Potassium 3.7 (3.6-5.0) mmol/L Chloride 101.4 (98-107) mmol/L Carbon Dioxide 29 (22-30) mmol/L Anion Gap 14 mmol/L BUN 24 H (7-17) mg/dL Creatinine 1.2 (0.6-1.2) mg/dL Estimated GFR > 60 ml/min BUN/Creatinine Ratio 20 % Glucose 109 H (65-100) mg/dL Calcium 9.3 (8.4-10.2) mg/dL Total Bilirubin 0.50 (0.1-1.2) mg/dL AST 23 (5-40) units/L ALT 18 (7-56) units/L Alkaline Phosphatase 75 (35-129) units/L Total Protein 8.2 (6.3-8.2) g/dL Albumin 4.2 (3.9-5) g/dL Albumin/Globulin Ratio 1.1 % Lipase (13-60) units/L HCG, Qual Negative (Negative) 09/06/20 Range/Units 15:41 WBC (4.5-11.0) K/mm3 RBC (3.65-5.03) M/mm3 Hgb (10.1-14.3) gm/dl Hct (30.3-42.9) % MCV (79-97) fl MCH (28-32) pg MCHC (30-34) % RDW (13.2-15.2) % Plt Count (140-440) K/mm3 Lymph % (Auto) (13.4-35.0) % [place] % (Auto) (0.0-7.3) % Eos % (Auto) (0.0-4.3) % Baso % (Auto) (0.0-1.8) % Lymph # (Auto) (1.2-5.4) K/mm3 [place] # (Auto) (0.0-0.8) K/mm3 Eos # (Auto) (0.0-0.4) K/mm3 Baso # (Auto) (0.0-0.1) K/mm3 Seg Neutrophils % (40.0-70.0) % Seg Neutrophils # (1.8-7.7) K/mm3 Sodium (137-145) mmol/L Potassium (3.6-5.0) mmol/L Chloride (98-107) mmol/L Carbon Dioxide (22-30) mmol/L Anion Gap mmol/L BUN (7-17) mg/dL Creatinine (0.6-1.2) mg/dL Estimated GFR ml/min BUN/Creatinine Ratio % Glucose (65-100) mg/dL Calcium (8.4-10.2) mg/dL Total Bilirubin (0.1-1.2) mg/dL AST (5-40) units/L ALT (7-56) units/L Alkaline Phosphatase (35-129) units/L Total Protein (6.3-8.2) g/dL Albumin (3.9-5) g/dL Albumin/Globulin Ratio % Lipase 17 (13-60) units/L HCG, Qual (Negative) - EKG Data EKG shows normal: sinus rhythm, axis, intervals, QRS complexes Rate: bradycardia - EKG Data 09/06/20 16:36 no STEMI - Medical Decision Making Patient is a 25-year-old female presents emergency room with complaints of nausea, vomiting, diarrhea that began 3 days ago. She states that she has been taking Phenergan at home without much relief. She states that she has some mild abdominal cramping but denies any sharp pain. She denies any recent travel, sick contacts, recent antibiotics. She denies any fever, urinary symptoms, abnormal vaginal discharge, hematoemesis, hematochezia, melena. No past medical history. No allergies medications. She states that she has had the same exact symptoms previously in March and her symptoms improved after she received IV fluids and medications per patient. VSS. no abdominal tenderness on exam, no guarding, no rebound, no rigidity, normal bowel sounds, no peritoneal signs. Labs are normal. hCG is negative. EKG ordered prior to my examination, initially stated due to syncope, patient states that she felt lightheaded due to constant vomiting, EKG is stable. Patient given 1 L normal saline, Benadryl, Reglan and symptoms completely improved and she is feeling much better ready to go home. Patient had no further episodes of vomiting. Awaiting UA results to rule out UTI, patient did not give urine sample. When I went to discuss with patient regarding urine sample, it appears she eloped from the emergency department Symptoms are likely related to gastroenteritis, do not suspect acute emergent intra-abdominal pathology Patient eloped from the emergency department prior to completion of examination Critical care attestation.: If time is entered above; I have spent that time in minutes in the direct care of this critically ill patient, excluding procedure time. ED Disposition Clinical Impression: Nausea vomiting and diarrhea Disposition: DC- TO HOME OR SELFCARE Is pt being admited?: No Does the pt Need Aspirin: No Condition: Undetermined Instructions: Viral Gastroenteritis, Adult Referrals: PRIMARY CARE, [Primary Care Provider] - 3-5 Days
== END 2020-09-06 16:35 | disposition home or self-care (01) ==
LOC: ED 08:38
DX: R11.2 Nausea with vomiting, unspecified (principal); R19.7 Diarrhea, unspecified; R10.9 Unspecified abdominal pain; Z98.890 Other specified postprocedural states; Z79.899 Other long term (current) drug therapy
CPT/HCPCS: 36415; 80053; 83690; 84703; 85025; 93005; 96361; 96374; 96375; 99284; J1200; J2765; J7030

== ENCOUNTER 2021-08-16 05:56 | Emergency (ER) | payer MEDICAID ==
[2021-08-16] MEDS ORDERED: SODIUM CHLORIDE 0.9% 1000 ML 1,000 ML IV ONE ×2 (06:59→09:57)
[2021-08-16] MEDS ORDERED: ONDANSETRON 4 MG/2 ML INJ IV ONE ×2 (06:59→08:51)
[2021-08-16] MEDS ORDERED: diphenhydrAMINE 50 MG/ML VIAL IV ONE (06:59)
--- NOTE | 2021-08-16 07:01 | Emergency Department Report ---
HPI - General Chief Complaint: Nausea/Vomiting/Diarrhea Time Seen by Provider: 08/16/21 06:55 - HPI HPI: 26-year-old -[place] female presents to the emergency department via EMS from home with complaint of nausea and vomiting continuously since last night. She denies any fever, abdominal pain, dysuria, vaginal bleeding or discharge, back pain. She denies any past medical history other than a history of ovarian cysts and she has previous . She has not taken anything for symptoms prior to presentation. The patient has been seen for this set of symptoms multiple times in the past but denies ever having been given a diagnosis or central hospital outpatient follow-up with GI. She denies any heavy marijuana use. No recent travel or sick contacts at home. She is not vaccinated against COVID-19. ED Past Medical Hx - Past Medical History Hx Hypertension: No Hx Heart Attack/AMI: No Hx Congestive Heart Failure: No Hx Diabetes: No Hx Deep Vein Thrombosis: No Hx Renal Disease: No Hx Sickle Cell Disease: No Hx Seizures: No Hx Asthma: No Hx COPD: No Hx HIV: No Additional medical history: ovarian cyst - Surgical History Additional Surgical History: - Social History Smoking Status: Never Smoker Substance Use Type: None - Medications Home Medications: Home Medications Medication Instructions Recorded Confirmed Last Taken Type Vit Calc,Iron,Folic 1 each PO DAILY 12/03/15 03/09/16 12/01/15 09:00 History [ Vitamins] 1 Ferrous Sulfate [Feosol 325 MG tab] 325 mg PO BID #60 tablet 03/09/16 Unknown Rx HYDROcodone/APAP 5-325 [[place] 1 each PO Q6HR PRN #30 tablet 03/09/16 Unknown Rx 5/325] Ibuprofen [Motrin] 800 mg PO Q8HR PRN #30 tablet 03/09/16 Unknown Rx Vit Calc,Iron,Folic 1 each PO DAILY #30 tablet 03/09/16 Unknown Rx [ Vitamins] Promethazine [Phenergan] 25 mg [place] Q6HR PRN #20 supp.rect 02/15/20 Unknown Rx Famotidine [Pepcid] 20 mg PO BID #20 tablet 02/17/20 Unknown Rx Ondansetron [Zofran ODT TAB] 8 mg PO Q8HR #14 tab.rapdis 02/17/20 Unknown Rx Potassium Chloride [K-Dur] 20 meq PO QDAY #5 tablet 02/17/20 Unknown Rx Promethazine [Phenergan SUPPOS] 50 mg [place] Q6H PRN #14 supp.rect 02/17/20 Unknown Rx traMADoL [Ultram 50 MG tab] 50 mg PO Q6HR PRN #14 tablet 02/17/20 Unknown Rx Famotidine [Pepcid] 20 mg PO BID 15 Days #30 tablet 09/05/20 Unknown Rx Ondansetron [Zofran ODT TAB] 4 mg PO Q8HR PRN #15 tab.rapdis 08/16/21 Unknown Rx Promethazine [Phenergan] 25 mg PO Q6HR PRN #12 tab 08/16/21 Unknown Rx ED Review of Systems ROS: Stated complaint: VOMITING Other details as noted in HPI Comment: All other systems reviewed and negative Constitutional: weakness. denies: chills, fever Eyes: denies: eye pain, vision change ENT: denies: ear pain, throat pain Respiratory: denies: cough, shortness of breath Cardiovascular: denies: chest pain, palpitations Gastrointestinal: nausea, vomiting Genitourinary: denies: dysuria, discharge Musculoskeletal: denies: back pain, arthralgia Skin: denies: rash, lesions Neurological: denies: headache, numbness Physical Exam - Physical Exam Vital Signs: Vital Signs 08/16/21 08/16/21 06:52 06:56 Temperature 97.9 F Pulse Rate 39 L 54 L Respiratory 16 14 Rate Blood Pressure 138/75 129/74 [Left] O2 Sat by Pulse 100 100 Oximetry Physical Exam: GENERAL: The patient is well-developed well-nourished. HENT: Normocephalic. Atraumatic. Patient has moist mucous membranes. EYES: Extraocular motions are intact. NECK: Supple. Trachea is midline. CHEST/LUNGS: Clear to auscultation. There is no respiratory distress noted. HEART/CARDIOVASCULAR: Regular. There is no tachycardia. There is no murmur. ABDOMEN: Abdomen is soft, nontender. Patient has normal bowel sounds. There is no abdominal distention. SKIN: Skin is warm and dry. NEURO: The patient is awake, alert, and oriented. The patient is cooperative. Normal speech. MUSCULOSKELETAL: There is no tenderness or deformity. There is no limitation range of motion. ED Course Vital Signs 08/16/21 08/16/21 06:52 06:56 Temperature 97.9 F Pulse Rate 39 L 54 L Respiratory 16 14 Rate Blood Pressure 138/75 129/74 [Left] O2 Sat by Pulse 100 100 Oximetry ED Medical Decision Making - Lab Data Result diagrams: 08/16/21 08:00 08/16/21 06:59 Lab Results 08/16/21 08/16/21 08/16/21 Range/Units 06:59 08:00 08:00 WBC 6.5 (4.5-11.0) K/mm3 RBC 4.11 (3.65-5.03) M/mm3 Hgb 12.3 (10.1-14.3) gm/dl Hct 37.4 (30.3-42.9) % MCV 91 (79-97) fl MCH 30 (28-32) pg MCHC 33 (30-34) % RDW 13.7 (13.2-15.2) % Plt Count 218 (140-440) K/mm3 Lymph % (Auto) 13.3 L (13.4-35.0) % [place] % (Auto) 4.0 (0.0-7.3) % Eos % (Auto) 0.5 (0.0-4.3) % Baso % (Auto) 0.6 (0.0-1.8) % Lymph # (Auto) 0.9 L (1.2-5.4) K/mm3 [place] # (Auto) 0.3 (0.0-0.8) K/mm3 Eos # (Auto) 0.0 (0.0-0.4) K/mm3 Baso # (Auto) 0.0 (0.0-0.1) K/mm3 Seg Neutrophils % 81.6 H (40.0-70.0) % Seg Neutrophils # 5.3 (1.8-7.7) K/mm3 Sodium 139 (137-145) mmol/L Potassium 3.7 (3.6-5.0) mmol/L Chloride 100.0 (98-107) mmol/L Carbon Dioxide 25 (22-30) mmol/L Anion Gap 18 mmol/L BUN 10 (7-17) mg/dL Creatinine 0.8 (0.6-1.2) mg/dL Estimated GFR > 60 ml/min BUN/Creatinine Ratio 13 % Glucose 157 H (65-100) mg/dL Calcium 9.4 (8.4-10.2) mg/dL Total Bilirubin 0.30 (0.1-1.2) mg/dL AST 21 (5-40) units/L ALT 17 (7-56) units/L Alkaline Phosphatase 63 (35-129) units/L Total Protein 7.0 (6.3-8.2) g/dL Albumin 4.4 (3.9-5) g/dL Albumin/Globulin Ratio 1.7 % Lipase 20 (13-60) units/L HCG, Qual Negative (Negative) - Medical Decision Making This patient presents to the emergency department with a complaint of nausea with vomiting. She denies any abdominal pain. The patient is seen actively vomiting, but otherwise does not appear in any acute distress. An IV was placed and the patient was given IV fluid resuscitation and a total of 3 antiemetics over her ED course. Labs have been unremarkable thus far including CBC, metabolic panel, lipase, and the patient is not . The patient has not left a urine sample for us for UDS or urinalysis. Vital signs have been reassuring throughout her ED course. The patient has been able to pass an oral challenge without any return of nausea vomiting. The patient was to be discharged home with prescriptions for antiemetics, but the patient left the emergency department without her discharge paperwork or prescriptions. Critical Care Time: No Critical care attestation.: If time is entered above; I have spent that time in minutes in the direct care of this critically ill patient, excluding procedure time. ED Disposition Clinical Impression: Nausea & vomiting Qualifiers: Vomiting type: unspecified Vomiting Intractability: non-intractable Qualified Code(s): R11.2 - Nausea with vomiting, unspecified Disposition: 01 HOME / SELF CARE / HOMELESS Is pt being admited?: No Condition: Stable Instructions: Nausea and Vomiting, Adult Additional Instructions: Please follow-up with a primary care physician in the next few days. Increase your oral rehydration. You have been prescribed a medication that is sedating and therefore should not be taken prior to driving, working, and responsible for children and in no way should be mixed with alcohol of any quantity. Return to the emergency department with any worsening of your symptoms, new or concerning symptoms not addressed during this current emergency department visit, or with any acute distress. Prescriptions: Promethazine [Phenergan] 25 mg PO Q6HR PRN #12 tab PRN Reason: Nausea Ondansetron [Zofran ODT TAB] 4 mg PO Q8HR PRN #15 tab.rapdis PRN Reason: Nausea And Vomiting Referrals: PRIMARY CARE,MD [Primary Care Provider] - 2-3 Days Time of Disposition: 10:48
[2021-08-16 08:16] LABS: Basophils % (Auto) 0.6 % (0.0-1.8); Eosinophils % (Auto) 0.5 % (0.0-4.3); Hematocrit 37.4 % (30.3-42.9); Hemoglobin 12.3 gm/dl (10.1-14.3); Lymphocytes # (Auto) 0.9 K/mm3 (1.2-5.4); Lymphocytes % (Auto) 13.3 % (13.4-35.0); Mean Corpuscular HGB Conc 33 % (30-34); Mean Corpuscular Volume 91 fl (79-97); Monocytes # (Auto) 0.3 K/mm3 (0.0-0.8); Platelet Count 218 K/mm3 (140-440); Red Blood Count 4.11 M/mm3 (3.65-5.03); Red Cell Distribution Width 13.7 % (13.2-15.2)
[2021-08-16 08:38] LABS: Alanine Aminotransferase 17 units/L (7-56); Albumin 4.4 g/dL (3.9-5); BUN/Creatinine Ratio 13; Blood Urea Nitrogen 10 mg/dL (7-17); Calcium 9.4 mg/dL (8.4-10.2); Hemolysis Index 23
[2021-08-16] MEDS ORDERED: METOCLOPRAMIDE 10 MG/2 ML INJ IV ONE (09:57)
[2021-08-16 11:11] VITALS: BP 126/66
== END 2021-08-16 11:46 | disposition home or self-care (01) ==
LOC: ED 05:56
DX: R11.2 Nausea with vomiting, unspecified (principal)
CPT/HCPCS: 36415; 80053; 83690; 84703; 85025; 96361; 96374; 96375; 96376; 99284; J1200; J2405; J2765; J7030

== ENCOUNTER 2021-08-17 23:21 | Emergency (ER) | payer SELFPAY ==
[2021-08-17] MEDS ORDERED: ONDANSETRON 4 MG/2 ML INJ IV ONE (23:33)
[2021-08-18] MEDS ORDERED: FAMOTIDINE 20 MG/2 ML INJ IV ONE
[2021-08-18] MEDS ORDERED: SODIUM CHLORIDE 0.9% 1000 ML 1,000 ML ONE (00:06)
[2021-08-18 00:23] LABS: Basophils % (Auto) 0.4 % (0.0-1.8); Eosinophils % (Auto) 0.1 % (0.0-4.3); Hematocrit 35.6 % (30.3-42.9); Hemoglobin 11.7 gm/dl (10.1-14.3); Lymphocytes % (Auto) 16.9 % (13.4-35.0); Mean Corpuscular HGB Conc 33 % (30-34); Mean Corpuscular Volume 92 fl (79-97); Monocytes # (Auto) 0.6 K/mm3 (0.0-0.8); Monocytes % (Auto) 9.5 % (0.0-7.3); Platelet Count 183 K/mm3 (140-440); Red Blood Count 3.87 M/mm3 (3.65-5.03); Red Cell Distribution Width 14.2 % (13.2-15.2)
[2021-08-18] MEDS ORDERED: diphenhydrAMINE 50 MG/ML VIAL IV ONE (00:23)
[2021-08-18] MEDS ORDERED: METOCLOPRAMIDE 10 MG/2 ML INJ IV ONE (00:24)
--- NOTE | 2021-08-18 00:27 | Emergency Department Report ---
ED N/V/D HPI - General Chief complaint: Nausea/Vomiting/Diarrhea Stated complaint: VOMITING Time Seen by Provider: 08/18/21 00:15 Source: patient Mode of arrival: Stretcher Limitations: No Limitations - History of Present Illness Initial comments: 26-year-old female with past medical history of , ovarian cyst, and vomiting episodes presents to the hospital complaint of nausea, vomiting and p.o. intolerance for 5 days. Patient is now seeing intermittent blood in her vomitus. She has not had a bowel movement in 4 to 5 days. She denies fever. She complains of burning pain to her throat with vomiting. No specific stomach pain reported. Patient feeling weak and dizzy. Patient was here yesterday for the same symptoms. Discharged on Zofran and Phenergan. Patient states she did not receive these prescriptions and therefore did not take any meds since discharge. Labs from previous visit unremarkable. Patient denies receive any imaging studies at that time. negative. Patient requesting Benadryl to go to sleep and to help with her anxiety in addition to IV fluid antiemetics. Patient presented had similar episodes of in the past but has not been seen by GI specialist. Denied marijuana use MD complaint: nausea - Related Data Home Medications Medication Instructions Recorded Confirmed Last Taken Vit Calc,Iron,Folic 1 each PO DAILY 12/03/15 03/09/16 12/01/15 09:00 [ Vitamins] 1 Previous Rx's Medication Instructions Recorded Last Taken Type Ferrous Sulfate [Feosol 325 MG tab] 325 mg PO BID #60 tablet 03/09/16 Unknown Rx HYDROcodone/APAP 5-325 [[place] 1 each PO Q6HR PRN #30 tablet 03/09/16 Unknown Rx 5/325] Ibuprofen [Motrin] 800 mg PO Q8HR PRN #30 tablet 03/09/16 Unknown Rx Vit Calc,Iron,Folic 1 each PO DAILY #30 tablet 03/09/16 Unknown Rx [ Vitamins] Promethazine [Phenergan] 25 mg ME Q6HR PRN #20 supp.rect 02/15/20 Unknown Rx Famotidine [Pepcid] 20 mg PO BID #20 tablet 02/17/20 Unknown Rx Ondansetron [Zofran ODT TAB] 8 mg PO Q8HR #14 tab.rapdis 02/17/20 Unknown Rx Potassium Chloride [K-Dur] 20 meq PO QDAY #5 tablet 02/17/20 Unknown Rx Promethazine [Phenergan SUPPOS] 50 mg ME Q6H PRN #14 supp.rect 02/17/20 Unknown Rx traMADoL [Ultram 50 MG tab] 50 mg PO Q6HR PRN #14 tablet 02/17/20 Unknown Rx Famotidine [Pepcid] 20 mg PO BID 15 Days #30 tablet 09/05/20 Unknown Rx Ondansetron [Zofran ODT TAB] 4 mg PO Q8HR PRN #15 tab.rapdis 08/16/21 Unknown Rx Promethazine [Phenergan] 25 mg PO Q6HR PRN #12 tab 08/16/21 Unknown Rx Famotidine [Pepcid] 20 mg PO BID #20 tablet 08/18/21 Unknown Rx Promethazine [Phenergan] 25 mg ME Q6HR PRN #20 supp.rect 08/18/21 Unknown Rx Allergies Allergy/AdvReac Type Severity Reaction Status Date / Time No Known Allergies Allergy Verified 08/17/21 23:28 ED Review of Systems ROS: Stated complaint: VOMITING Other details as noted in HPI Comment: All other systems reviewed and negative ED Past Medical Hx - Past Medical History Hx Hypertension: No Hx Heart Attack/AMI: No Hx Congestive Heart Failure: No Hx Diabetes: No Hx Deep Vein Thrombosis: No Hx Renal Disease: No Hx Sickle Cell Disease: No Hx Seizures: No Hx Asthma: No Hx COPD: No Hx HIV: No Additional medical history: ovarian cyst - Surgical History Additional Surgical History: - Social History Smoking Status: Never Smoker Substance Use Type: None - Medications Home Medications: Home Medications Medication Instructions Recorded Confirmed Last Taken Type Vit Calc,Iron,Folic 1 each PO DAILY 12/03/15 03/09/16 12/01/15 09:00 History [ Vitamins] 1 Ferrous Sulfate [Feosol 325 MG tab] 325 mg PO BID #60 tablet 03/09/16 Unknown Rx HYDROcodone/APAP 5-325 [[place] 1 each PO Q6HR PRN #30 tablet 03/09/16 Unknown Rx 5/325] Ibuprofen [Motrin] 800 mg PO Q8HR PRN #30 tablet 03/09/16 Unknown Rx Vit Calc,Iron,Folic 1 each PO DAILY #30 tablet 03/09/16 Unknown Rx [ Vitamins] Promethazine [Phenergan] 25 mg ME Q6HR PRN #20 supp.rect 02/15/20 Unknown Rx Famotidine [Pepcid] 20 mg PO BID #20 tablet 02/17/20 Unknown Rx Ondansetron [Zofran ODT TAB] 8 mg PO Q8HR #14 tab.rapdis 02/17/20 Unknown Rx Potassium Chloride [K-Dur] 20 meq PO QDAY #5 tablet 02/17/20 Unknown Rx Promethazine [Phenergan SUPPOS] 50 mg ME Q6H PRN #14 supp.rect 02/17/20 Unknown Rx traMADoL [Ultram 50 MG tab] 50 mg PO Q6HR PRN #14 tablet 02/17/20 Unknown Rx Famotidine [Pepcid] 20 mg PO BID 15 Days #30 tablet 09/05/20 Unknown Rx Ondansetron [Zofran ODT TAB] 4 mg PO Q8HR PRN #15 tab.rapdis 08/16/21 Unknown Rx Promethazine [Phenergan] 25 mg PO Q6HR PRN #12 tab 08/16/21 Unknown Rx Famotidine [Pepcid] 20 mg PO BID #20 tablet 08/18/21 Unknown Rx Promethazine [Phenergan] 25 mg ME Q6HR PRN #20 supp.rect 08/18/21 Unknown Rx ED Physical Exam - General Limitations: No Limitations - Other Other exam information: General: No acute distress Head: Atraumatic Eyes: normal appearance ENT: Moist mucous membranes Neck: Normal appearance, no midline tenderness Chest: Clear to auscultation bilaterally CV: Regular rate and rhythm Abdomen: Soft, normal bowel sounds, nontender, nondistended, no rebound or guarding. Abdomen nontender but palpation induces nausea Back: Normal inspection Extremity: Normal inspection, full range of motion Neuro: Alert O x 3, no facial asymmetry, speech clear, no gross motor sensory deficit Psych: Appropriate behavior Skin: No rash ED Course Vital Signs 08/17/21 08/17/21 08/17/21 23:27 23:39 23:45 Temperature 99.2 F Pulse Rate 48 L 57 L 48 L Respiratory 18 16 Rate Blood Pressure 121/67 Blood Pressure 144/78 [Right] O2 Sat by Pulse 100 99 Oximetry 08/18/21 08/18/21 08/18/21 00:01 00:15 00:27 Temperature Pulse Rate Respiratory Rate Blood Pressure 129/55 124/56 Blood Pressure [Right] O2 Sat by Pulse 99 82 L 99 Oximetry 08/18/21 08/18/21 08/18/21 00:31 00:45 01:01 Temperature Pulse Rate 45 L 42 L Respiratory 15 20 22 Rate Blood Pressure 138/48 138/48 124/56 Blood Pressure [Right] O2 Sat by Pulse 97 98 93 Oximetry 08/18/21 08/18/21 08/18/21 01:15 01:31 01:45 Temperature Pulse Rate 45 L 45 L 47 L Respiratory 17 17 18 Rate Blood Pressure 134/51 138/48 138/48 Blood Pressure [Right] O2 Sat by Pulse 100 100 99 Oximetry 08/18/21 02:01 Temperature Pulse Rate Respiratory 15 Rate Blood Pressure 138/48 Blood Pressure [Right] O2 Sat by Pulse 98 Oximetry - Reevaluation(s) Reevaluation #1: 08/18/21 01:09 Patient informed not to eat or drink anything but keeps disconnecting herself on the monitor and trying to swallow water from the sink. ED Medical Decision Making - Lab Data Result diagrams: 08/17/21 23:56 08/17/21 23:56 Lab Results 08/17/21 08/17/21 08/17/21 Range/Units 23:56 23:56 23:56 WBC 6.2 (4.5-11.0) K/mm3 RBC 3.87 (3.65-5.03) M/mm3 Hgb 11.7 (10.1-14.3) gm/dl Hct 35.6 (30.3-42.9) % MCV 92 (79-97) fl MCH 30 (28-32) pg MCHC 33 (30-34) % RDW 14.2 (13.2-15.2) % Plt Count 183 (140-440) K/mm3 Lymph % (Auto) 16.9 (13.4-35.0) % [place] % (Auto) 9.5 H (0.0-7.3) % Eos % (Auto) 0.1 (0.0-4.3) % Baso % (Auto) 0.4 (0.0-1.8) % Lymph # (Auto) 1.0 L (1.2-5.4) K/mm3 [place] # (Auto) 0.6 (0.0-0.8) K/mm3 Eos # (Auto) 0.0 (0.0-0.4) K/mm3 Baso # (Auto) 0.0 (0.0-0.1) K/mm3 Seg Neutrophils % 73.1 H (40.0-70.0) % Seg Neutrophils # 4.5 (1.8-7.7) K/mm3 Sodium 143 (137-145) mmol/L Potassium 3.2 L (3.6-5.0) mmol/L Chloride 103.6 (98-107) mmol/L Carbon Dioxide 23 (22-30) mmol/L Anion Gap 20 mmol/L BUN 22 H (7-17) mg/dL Creatinine 0.8 (0.6-1.2) mg/dL Estimated GFR > 60 ml/min BUN/Creatinine Ratio 28 % Glucose 135 H (65-100) mg/dL POC Glucose (70-105) mg/dL Calcium 9.6 (8.4-10.2) mg/dL Total Bilirubin 0.70 (0.1-1.2) mg/dL AST 20 (5-40) units/L ALT 16 (7-56) units/L Alkaline Phosphatase 63 (35-129) units/L Total Protein 7.8 (6.3-8.2) g/dL Albumin 4.7 (3.9-5) g/dL Albumin/Globulin Ratio 1.5 % Lipase 11 L (13-60) units/L HCG, Quant < 2 (0-4) mIU/mL Urine Color (Yellow) Urine Turbidity (Clear) Urine pH (5.0-7.0) Ur Specific [place] (1.003-1.030) Urine Protein (Negative) mg/dL Urine Glucose (UA) (Negative) mg/dL Urine Ketones (Negative) mg/dL Urine Blood (Negative) Urine Nitrite (Negative) Urine Bilirubin (Negative) Urine Urobilinogen (<2.0) mg/dL Ur Leukocyte Esterase (Negative) Urine WBC (Auto) (0.0-6.0) /HPF Urine RBC (Auto) (0.0-6.0) /HPF U Epithel Cells (Auto) (0-13.0) /HPF Urine Bacteria (Auto) (Negative) /HPF Urine Mucus /HPF Urine Opiates Screen Urine Methadone Screen Ur Barbiturates Screen Ur Phencyclidine Scrn Ur Amphetamines Screen U Benzodiazepines Scrn Urine Cocaine Screen Blood Type Antibody Screen 08/17/21 08/18/21 08/18/21 Range/Units 23:56 00:03 Unknown WBC (4.5-11.0) K/mm3 RBC (3.65-5.03) M/mm3 Hgb (10.1-14.3) gm/dl Hct (30.3-42.9) % MCV (79-97) fl MCH (28-32) pg MCHC (30-34) % RDW (13.2-15.2) % Plt Count (140-440) K/mm3 Lymph % (Auto) (13.4-35.0) % [place] % (Auto) (0.0-7.3) % Eos % (Auto) (0.0-4.3) % Baso % (Auto) (0.0-1.8) % Lymph # (Auto) (1.2-5.4) K/mm3 [place] # (Auto) (0.0-0.8) K/mm3 Eos # (Auto) (0.0-0.4) K/mm3 Baso # (Auto) (0.0-0.1) K/mm3 Seg Neutrophils % (40.0-70.0) % Seg Neutrophils # (1.8-7.7) K/mm3 Sodium (137-145) mmol/L Potassium (3.6-5.0) mmol/L Chloride (98-107) mmol/L Carbon Dioxide (22-30) mmol/L Anion Gap mmol/L BUN (7-17) mg/dL Creatinine (0.6-1.2) mg/dL Estimated GFR ml/min BUN/Creatinine Ratio % Glucose (65-100) mg/dL POC Glucose 133 H (70-105) mg/dL Calcium (8.4-10.2) mg/dL Total Bilirubin (0.1-1.2) mg/dL AST (5-40) units/L ALT (7-56) units/L Alkaline Phosphatase (35-129) units/L Total Protein (6.3-8.2) g/dL Albumin (3.9-5) g/dL Albumin/Globulin Ratio % Lipase (13-60) units/L HCG, Quant (0-4) mIU/mL Urine Color Yellow (Yellow) Urine Turbidity Clear (Clear) Urine pH 6.0 (5.0-7.0) Ur Specific [place] 1.044 H (1.003-1.030) Urine Protein 100 mg/dl (Negative) mg/dL Urine Glucose (UA) >=500 (Negative) mg/dL Urine Ketones 20 (Negative) mg/dL Urine Blood Neg (Negative) Urine Nitrite Neg (Negative) Urine Bilirubin Neg (Negative) Urine Urobilinogen 4.0 (<2.0) mg/dL Ur Leukocyte Esterase Neg (Negative) Urine WBC (Auto) 2.0 (0.0-6.0) /HPF Urine RBC (Auto) 6.0 (0.0-6.0) /HPF U Epithel Cells (Auto) 2.0 (0-13.0) /HPF Urine Bacteria (Auto) 1+ (Negative) /HPF Urine Mucus 3+ /HPF Urine Opiates Screen Urine Methadone Screen Ur Barbiturates Screen Ur Phencyclidine Scrn Ur Amphetamines Screen U Benzodiazepines Scrn Urine Cocaine Screen Blood Type B POSITIVE Antibody Screen Negative 08/18/21 Range/Units Unknown WBC (4.5-11.0) K/mm3 RBC (3.65-5.03) M/mm3 Hgb (10.1-14.3) gm/dl Hct (30.3-42.9) % MCV (79-97) fl MCH (28-32) pg MCHC (30-34) % RDW (13.2-15.2) % Plt Count (140-440) K/mm3 Lymph % (Auto) (13.4-35.0) % [place] % (Auto) (0.0-7.3) % Eos % (Auto) (0.0-4.3) % Baso % (Auto) (0.0-1.8) % Lymph # (Auto) (1.2-5.4) K/mm3 [place] # (Auto) (0.0-0.8) K/mm3 Eos # (Auto) (0.0-0.4) K/mm3 Baso # (Auto) (0.0-0.1) K/mm3 Seg Neutrophils % (40.0-70.0) % Seg Neutrophils # (1.8-7.7) K/mm3 Sodium (137-145) mmol/L Potassium (3.6-5.0) mmol/L Chloride (98-107) mmol/L Carbon Dioxide (22-30) mmol/L Anion Gap mmol/L BUN (7-17) mg/dL Creatinine (0.6-1.2) mg/dL Estimated GFR ml/min BUN/Creatinine Ratio % Glucose (65-100) mg/dL POC Glucose (70-105) mg/dL Calcium (8.4-10.2) mg/dL Total Bilirubin (0.1-1.2) mg/dL AST (5-40) units/L ALT (7-56) units/L Alkaline Phosphatase (35-129) units/L Total Protein (6.3-8.2) g/dL Albumin (3.9-5) g/dL Albumin/Globulin Ratio % Lipase (13-60) units/L HCG, Quant (0-4) mIU/mL Urine Color (Yellow) Urine Turbidity (Clear) Urine pH (5.0-7.0) Ur Specific [place] (1.003-1.030) Urine Protein (Negative) mg/dL Urine Glucose (UA) (Negative) mg/dL Urine Ketones (Negative) mg/dL Urine Blood (Negative) Urine Nitrite (Negative) Urine Bilirubin (Negative) Urine Urobilinogen (<2.0) mg/dL Ur Leukocyte Esterase (Negative) Urine WBC (Auto) (0.0-6.0) /HPF Urine RBC (Auto) (0.0-6.0) /HPF U Epithel Cells (Auto) (0-13.0) /HPF Urine Bacteria (Auto) (Negative) /HPF Urine Mucus /HPF Urine Opiates Screen Negative Urine Methadone Screen Negative Ur Barbiturates Screen Negative Ur Phencyclidine Scrn Negative Ur Amphetamines Screen Negative U Benzodiazepines Scrn Negative Urine Cocaine Screen Negative Blood Type Antibody Screen - Medical Decision Making 26-year-old female presents to the hospital once again with the. Nausea, and vomiting. Reports hematemesis. During ED stay patient repeatedly restricted water at the sink despite instructions not to. Hematemesis was not present during ED stay. Patient received 2 L of D5 NS and IV and several antiemetics with improvement in nausea vomiting. Patient tolerated p.o. potassium. UDS positive for marijuana. Patient informed of possibility of cannabis hyperemesis as a cause of her symptoms. She will be discharged with rectal Phenergan and Pepcid and encouraged to follow-up as an outpatient Critical Care Time: No Critical care attestation.: If time is entered above; I have spent that time in minutes in the direct care of this critically ill patient, excluding procedure time. ED Disposition Clinical Impression: Nausea & vomiting, GERD (gastroesophageal reflux disease), Marijuana use Disposition: HOME / SELF CARE / HOMELESS Is pt being admited?: No Does the pt Need Aspirin: No Condition: Stable Instructions: Gastroesophageal Reflux Disease, Adult, [id number], Nausea and Vomiting, Adult, [id number], Cannabinoid Hyperemesis Syndrome Additional Instructions: Take the medication as prescribed. Follow-up with your doctor or doctor/clinic provided. Return if symptoms worsen as indicated by your discharge instructions. Prescriptions: Famotidine [Pepcid] 20 mg PO BID #20 tablet Promethazine [Phenergan] 25 mg ME Q6HR PRN #20 supp.rect PRN Reason: Nausea And Vomiting Referrals: ANGI CAMACHO MD [Staff Physician] - 3-5 Days (Primary care doctor) KIMI CARDOZA MD [Staff Physician] - 3-5 Days (GI doctor) JUAN FAJARDO MD [Primary Care Provider] - 3-5 Days [facility] [Provider Group] - 3-5 Days (Primary care clinic) Time of Disposition: 05:03
[2021-08-18 00:45] LABS: Alanine Aminotransferase 16 units/L (7-56); Albumin 4.7 g/dL (3.9-5); BUN/Creatinine Ratio 28; Blood Urea Nitrogen 22 mg/dL (7-17); Calcium 9.6 mg/dL (8.4-10.2); Hemolysis Index 3
[2021-08-18] MEDS ORDERED: D5W/0.9% NACL 1,000 ML IV SCH ×3 (01:00→03:00)
[2021-08-18 02:22] VITALS: BP 138/48
[2021-08-18] MEDS ORDERED: POTASSIUM CHLORIDE ER 20 MEQ TAB PO ONE (02:49)
[2021-08-18] MEDS ORDERED: PROMETHAZINE 25 MG RECT SUPP PR ONE (04:00)
[2021-08-18 04:12] LABS: Bacteria,Urine 1+ /HPF (Negative); Bilirubin,Urine NEG (Negative); Blood,Urine NEG (Negative); Color,Urine Yellow (Yellow); Mucus,Urine 3+ /HPF
[2021-08-18 04:19] LABS: Amphetamine Screen,Urine Negative; Benzodiazepines Screen,Urine Negative; Cocaine Screen,Urine Negative; Methadone Screen,Urine Negative; Opiate Screen,Urine Negative
[2021-08-18 04:38] LABS: Cannabinoid Screen,Urine PRESUMPTIVE POSITIVE
== END 2021-08-18 06:12 | disposition home or self-care (01) ==
LOC: ED 23:21
DX: K21.9 Gastro-esophageal reflux disease without esophagitis (principal); R11.2 Nausea with vomiting, unspecified; F12.90 Cannabis use, unspecified, uncomplicated; R07.0 Pain in throat; R53.1 Weakness; R42 Dizziness and giddiness; Z98.890 Other specified postprocedural states
CPT/HCPCS: 36415; 80053; 80307; 81001; 82962; 83690; 84702; 85025; 86850; 86900; 86901; 96361; 96374; 96375; 99283; J1200; J2405; J2765; J7042; J7030

== ENCOUNTER 2022-01-18 09:02 | Emergency (ER) | payer MEDICAID ==
[2022-01-18] MEDS ORDERED: FAMOTIDINE 20 MG TAB PO ONE (09:49)
[2022-01-18] MEDS ORDERED: SODIUM CHLORIDE 0.9% 1000 ML 1,000 ML IV ONE (09:49)
[2022-01-18] MEDS ORDERED: diphenhydrAMINE 25 MG CAP PO ONE (09:49)
[2022-01-18] MEDS ORDERED: ONDANSETRON 4 MG/2 ML INJ IV ONE (09:49)
--- NOTE | 2022-01-18 10:07 | Emergency Department Report ---
ED N/V/D HPI - General Chief complaint: Nausea/Vomiting/Diarrhea Stated complaint: WEAKNESS, NAUSEA/VOMITING Time Seen by Provider: 01/18/22 09:48 Source: patient, EMS Mode of arrival: Wheelchair Limitations: No Limitations - History of Present Illness Initial comments: 26-year-old female with a history of drug abuse presents to the ER via EMS today with complaints of nausea and vomiting. Patient states that she has been vomiting every day for the past 5 days. She states that she is unable to keep anything down. She states that her emesis has been liquid, but now bilious and she did notice some bright red blood mixed in with bilious emesis. She denies any diarrhea. She does not know when her last bowel movement was. She reports associated sore throat from the vomiting and epigastric pain. Patient admits that the symptoms are recurrent problem for her. She is never seen a GI specialist. She does admit that she use fentanyl from off the street 5 days ago when the symptoms first started. She denies any other illicit drugs. She diana es alcohol abuse. She denies any fever, chills, ill contacts or recent travel. She denies bad food intake. Last menstrual cycle was about 2 weeks ago. Abdominal surgery significant for C-sections. MD complaint: nausea, vomiting, abdominal pain -: days(s) (5) Location: epigastric Severity: moderate, severe Consistency: constant Improves with: none Worsens with: eating Associated Symptoms: other (sore throat/epigastric pain) - Related Data Allergies Allergy/AdvReac Type Severity Reaction Status Date / Time No Known Allergies Allergy Verified 08/17/21 23:28 ED Review of Systems ROS: Stated complaint: WEAKNESS, NAUSEA/VOMITING Other details as noted in HPI Comment: All other systems reviewed and negative Constitutional: denies: chills, fever Eyes: denies: eye pain, eye discharge, vision change ENT: throat pain (from vomiting). denies: ear pain Respiratory: denies: cough, orthopnea, shortness of breath, SOB with exertion, SOB at rest, wheezing Cardiovascular: denies: chest pain, palpitations Gastrointestinal: abdominal pain, nausea, vomiting. denies: diarrhea, constipation, hematemesis, melena, hematochezia Genitourinary: denies: urgency, dysuria, frequency, hematuria, discharge, abnormal menses, dyspareunia Musculoskeletal: denies: back pain, joint swelling, arthralgia Skin: denies: rash, lesions, change in color, change in hair/nails, pruritus Neurological: weakness. denies: headache, numbness, paresthesias, confusion, abnormal gait, vertigo Psychiatric: denies: anxiety, depression, auditory hallucinations, visual hallucinations, homicidal thoughts, suicidal thoughts Hematological/Lymphatic: denies: easy bleeding, easy bruising ED Past Medical Hx - Past Medical History Hx Hypertension: No Hx Heart Attack/AMI: No Hx Congestive Heart Failure: No Hx Diabetes: No Hx Deep Vein Thrombosis: No Hx Renal Disease: No Hx Sickle Cell Disease: No Hx Seizures: No Hx Asthma: No Hx COPD: No Hx HIV: No Additional medical history: ovarian cyst - Surgical History Additional Surgical History: - Social History Smoking Status: Never Smoker Substance Use Type: None ED Physical Exam - General Limitations: No Limitations General appearance: alert, other (Patient appears uncomfortable and actively vomiting in the room.) - Head Head exam: Present: atraumatic, normocephalic, normal inspection - Eye Eye exam: Present: normal appearance, PERRL, EOMI Pupils: Present: normal accommodation - ENT ENT exam: Present: mucous membranes dry (mild ) - Neck Neck exam: Present: normal inspection, full ROM. Absent: meningismus - Respiratory Respiratory exam: Present: normal lung sounds bilaterally. Absent: respiratory distress, wheezes, rales - Cardiovascular Cardiovascular Exam: Present: regular rate, normal rhythm, normal heart sounds - GI/Abdominal GI/Abdominal exam: Present: soft, tenderness (mild epigastric ). Absent: dis tended, guarding, rebound, rigid - Neurological Exam Neurological exam: Present: alert, oriented X3, CN II-XII intact, normal gait - Psychiatric Psychiatric exam: Present: normal affect, normal mood - Skin Skin exam: Present: intact ED Course Vital Signs 01/18/22 09:05 Temperature 98.2 F Pulse Rate 82 Respiratory 16 Rate Blood Pressure 136/79 [Left] O2 Sat by Pulse 99 Oximetry ED Medical Decision Making - Lab Data Result diagrams: 01/18/22 10:00 01/18/22 10:00 - Medical Decision Making It was reported to me by the front nurse that patient eloped from the ER. She removed her IV and stated that she was leaving. I was not informed of this until after patient left. I Was unable to review results with patient before she left. Critical care attestation.: If time is entered above; I have spent that time in minutes in the direct care of this critically ill patient, excluding procedure time. ED Disposition Clinical Impression: Vomiting, Drug use Disposition: 07 LEFT AWOL/ELOPED Is pt being admited?: No Condition: Stable Referrals: PRIYA VARNER MD [Primary Care Provider] - 3-5 Days
[2022-01-18] MEDS ORDERED: METOCLOPRAMIDE 10 MG/2 ML INJ IV ONE (10:37)
[2022-01-18] MEDS ORDERED: diphenhydrAMINE 50 MG/ML VIAL IV ONE (10:37)
[2022-01-18 10:48] VITALS: BP 136/79
[2022-01-18 10:54] LABS: Basophils % (Auto) 0.4 % (0.0-1.8); Hematocrit 37.4 % (30.3-42.9); Hemoglobin 12.1 gm/dl (10.1-14.3); Lymphocytes # (Auto) 0.6 K/mm3 (1.2-5.4); Lymphocytes % (Auto) 10.5 % (13.4-35.0); Mean Corpuscular HGB Conc 32 % (30-34); Mean Corpuscular Volume 92 fl (79-97); Monocytes # (Auto) 0.3 K/mm3 (0.0-0.8); Monocytes % (Auto) 5.5 % (0.0-7.3); Platelet Count 169 K/mm3 (140-440); Red Blood Count 4.05 M/mm3 (3.65-5.03); Red Cell Distribution Width 13.9 % (13.2-15.2)
[2022-01-18 11:14] LABS: Alanine Aminotransferase 18 units/L (7-56); Albumin 4.7 g/dL (3.9-5); BUN/Creatinine Ratio 20; Blood Urea Nitrogen 18 mg/dL (7-17); Calcium 9.6 mg/dL (8.4-10.2); Hemolysis Index 4
== END 2022-01-18 10:56 | disposition left against medical advice (07) ==
LOC: ED 09:02
DX: R11.2 Nausea with vomiting, unspecified (principal); F19.90 Other psychoactive substance use, unspecified, uncomplicated
CPT/HCPCS: 36415; 80053; 83690; 83735; 84703; 85025; 96361; 96374; 99283; J2405; J7030; Q0162

== ENCOUNTER 2022-01-18 23:39 | Emergency (ER) | payer MEDICAID ==
[2022-01-18 23:55] VITALS: BP 110/60
--- NOTE | 2022-01-19 00:41 | Emergency Department Report ---
ED N/V/D HPI - General Chief complaint: Nausea/Vomiting/Diarrhea Stated complaint: NAUSEA AND VOMITING. Source: patient Mode of arrival: Stretcher Limitations: No Limitations - History of Present Illness Initial comments: This patient presented to the emergency department for evaluation of nausea and vomiting. The patient was apparently seen earlier in the day and pulled her IV out and left. She states that she has been unable to keep anything down since she walked out of the ER she also complained of diarrhea. The patient is very uncooperative and is demanding how she is to be treated. She is asking for IV fluids and Zofran. She also wants blankets and although given an emesis basin the patient is noted to be vomiting and spitting on the floor. The symptoms all started after the patient stated that she did use fentanyl purchased off the street approximately 5 days prior. She has a history of seizure disorder and is on Tegretol. MD complaint: nausea, vomiting, diarrhea - Related Data Previous Rx's Medication Instructions Recorded Last Taken Type Ondansetron [Zofran Odt] 4 mg PO Q8HR #10 tab.rapdis 01/19/22 Unknown Rx Allergies Allergy/AdvReac Type Severity Reaction Status Date / Time No Known Allergies Allergy Verified 08/17/21 23:28 ED Review of Systems ROS: Stated complaint: NAUSEA AND VOMITING. Other details as noted in HPI ED Past Medical Hx - Past Medical History Previous Medical History?: Yes Hx Hypertension: No Hx Heart Attack/AMI: No Hx Congestive Heart Failure: No Hx Diabetes: No Hx Deep Vein Thrombosis: No Hx Renal Disease: No Hx Sickle Cell Disease: No Hx Seizures: No Hx Asthma: No Hx COPD: No Hx HIV: No Additional medical history: ovarian cyst. ANEMIA - Surgical History Past Surgical History?: Yes Additional Surgical History: - Social History Smoking Status: Current Every Day Smoker Substance Use Type: None - Medications Home Medications: Home Medications Medication Instructions Recorded Confirmed Last Taken Type Ondansetron [Zofran Odt] 4 mg PO Q8HR #10 tab.rapdis 01/19/22 Unknown Rx ED Physical Exam - General Limitations: No Limitations General appearance: alert, other (Abusive and demanding) - Head Head exam: Present: atraumatic, normocephalic - Eye Eye exam: Present: normal appearance - ENT ENT exam: Present: mucous membranes moist - Neck Neck exam: Present: normal inspection - Respiratory Respiratory exam: Present: normal lung sounds bilaterally. Absent: respiratory distress - Cardiovascular Cardiovascular Exam: Present: regular rate, normal rhythm. Absent: systolic murmur, diastolic murmur, rubs, gallop - GI/Abdominal GI/Abdominal exam: Present: soft, normal bowel sounds. Absent: distended, tenderness, hyperactive bowel sounds, mass, bruit - Rectal Rectal exam: Present: deferred - Extremities Exam Extremities exam: Present: normal inspection, full ROM. Absent: tenderness - Neurological Exam Neurological exam: Present: alert, oriented X3 - Skin Skin exam: Present: warm, dry, intact ED Course Vital Signs 01/18/22 23:45 Temperature 98 F Pulse Rate 60 Respiratory 18 Rate Blood Pressure 110/60 O2 Sat by Pulse 100 Oximetry ED Medical Decision Making - Lab Data Result diagrams: 01/19/22 01:21 01/19/22 01:21 The patient's labs were reviewed and there was no significant abnormality. Her Tegretol level returned this subtherapeutic. - Medical Decision Making After attempting to opacify this patient's needs. And dealing with her abusive behavior. The decision was made to discharge the patient with a prescription for Zofran. Her labs were noted to be normal, and since her Tegretol level was subtherapeutic this was not likely the cause of her nausea and vomiting. The patient did not have any episodes of diarrhea in the emergency department - Differential Diagnosis Tegretol toxicity, acute gastroenteritis, psychogenic vomiting Critical care attestation.: If time is entered above; I have spent that time in minutes in the direct care of this critically ill patient, excluding procedure time. ED Disposition Clinical Impression: Drug use Vomiting Qualifiers: Vomiting type: unspecified Nausea presence: unspecified Qualified Code(s): R11.10 - Vomiting, unspecified Disposition: 01 HOME / SELF CARE / HOMELESS Is pt being admited?: No Condition: Stable Instructions: Nausea and Vomiting, Adult, Vomiting, Adult Prescriptions: Ondansetron [Zofran Odt] 4 mg PO Q8HR #10 tab.rapdis Referrals: STEFANIA LANGFORD MD [Primary Care Provider] - 3-5 Days
[2022-01-19] MEDS ORDERED: SODIUM CHLORIDE 0.9% 1000 ML 1,000 ML IV ONE (00:49)
[2022-01-19] MEDS ORDERED: ONDANSETRON 4 MG/2 ML INJ IV ONE (00:50)
[2022-01-19 02:09] LABS: Hematocrit 36.2 % (30.3-42.9); Mean Corpuscular HGB Conc 33 % (30-34); Mean Corpuscular Volume 92 fl (79-97); Platelet Count 164 K/mm3 (140-440); Red Blood Count 3.95 M/mm3 (3.65-5.03)
[2022-01-19 02:47] LABS: Bilirubin,Urine NEG (Negative); Blood,Urine NEG (Negative); Color,Urine Amber (Yellow); Mucus,Urine 3+ /HPF
[2022-01-19 02:54] LABS: Alanine Aminotransferase 17 units/L (7-56); Albumin 4.4 g/dL (3.9-5); BUN/Creatinine Ratio 25; Blood Urea Nitrogen 20 mg/dL (7-17); Calcium 9.8 mg/dL (8.4-10.2); Hemolysis Index 4
[2022-01-19 02:56] LABS: Amphetamine Screen,Urine PRESUMPTIVE NEGATIVE; Benzodiazepines Screen,Urine PRESUMPTIVE NEGATIVE; Cannabinoid Screen,Urine PRESUMPTIVE POSITIVE; Cocaine Screen,Urine PRESUMPTIVE NEGATIVE; Methadone Screen,Urine PRESUMPTIVE NEGATIVE; Opiate Screen,Urine PRESUMPTIVE NEGATIVE
[2022-01-19 03:40] LABS: Basophils % (Auto) 0.7 % (0.0-1.8); Lymphocytes # (Auto) 1.2 K/mm3 (1.2-5.4); Lymphocytes % (Auto) 18.4 % (13.4-35.0); Monocytes # (Auto) 0.6 K/mm3 (0.0-0.8); Monocytes % (Auto) 8.9 % (0.0-7.3)
== END 2022-01-19 03:43 | disposition home or self-care (01) ==
LOC: ED 23:39
DX: F19.90 Other psychoactive substance use, unspecified, uncomplicated (principal); R11.10 Vomiting, unspecified; Z79.899 Other long term (current) drug therapy; F17.200 Nicotine dependence, unspecified, uncomplicated
CPT/HCPCS: 36415; 80053; 80156; 80307; 81001; 85025; 96361; 96374; 99284; J2405; J7030; 96367; Q0162

== ENCOUNTER 2022-05-07 11:19 | Emergency (ER) | payer MEDICAID ==
[2022-05-07 11:45] VITALS: BP 142/68
== END 2022-05-07 12:30 | disposition left against medical advice (07) ==
LOC: ED 11:19
DX: R55 Syncope and collapse (principal); Z53.21 Procedure and treatment not carried out due to patient leaving prior to being seen by health care provider

== ENCOUNTER 2022-05-08 08:05 | Emergency (ER) | payer MEDICAID ==
[2022-05-08 08:12] VITALS: BP 119/61
[2022-05-08] MEDS ORDERED: SODIUM CHLORIDE 0.9% 1000 ML 1,000 ML IV ONE (08:50)
[2022-05-08] MEDS ORDERED: ONDANSETRON 4 MG/2 ML INJ IV ONE (08:50)
--- NOTE | 2022-05-08 08:50 | Event Note ---
ED Screening Note ED Screening Note: Here yesterday - see note To [facility] via EMS co abd pain nv temp 100.2 recent gastroparesis dx MD refused to see pt so RN brought me chart- discussed with Dr Chaim regalado This initial assessment/diagnostic orders/clinical plan/treatment(s) is/are subject to change based on patients health status, clinical progression and re- assessment by fellow clinical providers in the ED. Further treatment and workup at subsequent clinical providers discretion. Patient/guardian urged not to elope from the ED as their condition may be serious if not clinically assessed and managed. Initial orders include: MSE orders placed
[2022-05-08] MEDS ORDERED: KETOROLAC 30 MG/1 ML INJ IV ONE (09:57)
--- NOTE | 2022-05-08 10:07 | Emergency Department Report ---
ED Abdominal Pain HPI - General Chief Complaint: Abdominal Pain Stated Complaint: NAUSEA/VOMTITING PUI?: No Time Seen by Provider: 05/08/22 09:50 Source: patient, EMS Mode of arrival: Stretcher Limitations: No Limitations - History of Present Illness Severity scale (0 -10): 10 - Related Data Previous Rx's Medication Instructions Recorded Last Taken Type Ondansetron [Zofran Odt] 4 mg PO Q8HR #10 tab.rapdis 01/19/22 Unknown Rx Allergies Allergy/AdvReac Type Severity Reaction Status Date / Time No Known Allergies Allergy Verified 05/08/22 08:07 ED Review of Systems ROS: Stated complaint: NAUSEA/VOMTITING Other details as noted in HPI Comment: All other systems reviewed and negative ED Past Medical Hx - Past Medical History Previous Medical History?: Yes Hx Hypertension: No Hx Heart Attack/AMI: No Hx Congestive Heart Failure: No Hx Diabetes: No Hx Deep Vein Thrombosis: No Hx Renal Disease: No Hx Sickle Cell Disease: No Hx Seizures: No Hx Asthma: No Hx COPD: No Hx HIV: No Additional medical history: ovarian cyst. ANEMIA - Surgical History Past Surgical History?: Yes Additional Surgical History: - Family History Family history: no significant - Social History Smoking Status: Current Every Day Smoker Substance Use Type: None, Marijuana - Medications Home Medications: Home Medications Medication Instructions Recorded Confirmed Last Taken Type Ondansetron [Zofran Odt] 4 mg PO Q8HR #10 tab.rapdis 01/19/22 Unknown Rx ED Physical Exam - General Limitations: No Limitations General appearance: alert, in no apparent distress - Head Head exam: Present: atraumatic, normocephalic - Eye Eye exam: Present: normal appearance - ENT ENT exam: Present: mucous membranes moist - Neck Neck exam: Present: normal inspection - Respiratory Respiratory exam: Present: normal lung sounds bilaterally. Absent: respiratory distress - Cardiovascular Cardiovascular Exam: Present: regular rate, normal rhythm. Absent: systolic murmur, diastolic murmur, rubs, gallop - GI/Abdominal GI/Abdominal exam: Present: soft, normal bowel sounds - Extremities Exam Extremities exam: Present: normal inspection - Back Exam Back exam: Present: normal inspection - Neurological Exam Neurological exam: Present: alert, oriented X3 - Psychiatric Psychiatric exam: Present: normal affect, normal mood - Skin Skin exam: Present: warm, dry, intact, normal color. Absent: rash ED Course Vital Signs 05/08/22 08:09 Temperature 100.2 F H Pulse Rate 50 L Respiratory 16 Rate Blood Pressure 119/61 [Left] O2 Sat by Pulse 99 Oximetry ED Medical Decision Making - Lab Data Result diagrams: 05/08/22 09:47 05/08/22 09:47 - Medical Decision Making Vital Signs 05/08/22 08:09 Temperature 100.2 F H Pulse Rate 50 L Respiratory 16 Rate Blood Pressure 119/61 [Left] O2 Sat by Pulse 99 Oximetry Lab Results 05/08/22 05/08/22 Range/Units 09:47 09:47 WBC 7.7 (4.5-11.0) K/mm3 RBC 4.19 (3.65-5.03) M/mm3 Hgb 13.1 (10.1-14.3) gm/dl Hct 37.9 (30.3-42.9) % MCV 90 (79-97) fl MCH 31 (28-32) pg MCHC 35 H (30-34) % RDW 13.0 L (13.2-15.2) % Plt Count 158 (140-440) K/mm3 Lymph % (Auto) 14.5 (13.4-35.0) % [place] % (Auto) 10.4 H (0.0-7.3) % Eos % (Auto) 0.0 (0.0-4.3) % Baso % (Auto) 0.3 (0.0-1.8) % Lymph # (Auto) 1.1 L (1.2-5.4) K/mm3 [place] # (Auto) 0.8 (0.0-0.8) K/mm3 Eos # (Auto) 0.0 (0.0-0.4) K/mm3 Baso # (Auto) 0.0 (0.0-0.1) K/mm3 Seg Neutrophils % 74.8 H (40.0-70.0) % Seg Neutrophils # 5.8 (1.8-7.7) K/mm3 Sodium 141 (137-145) mmol/L Chloride 96.2 L (98-107) mmol/L Carbon Dioxide 31 H (22-30) mmol/L Anion Gap 17 mmol/L BUN 25 H (7-17) mg/dL Glucose 106 H (65-100) mg/dL Calcium 9.9 (8.4-10.2) mg/dL Total Bilirubin 1.10 (0.1-1.2) mg/dL Direct Bilirubin 0.2 (0-0.2) mg/dL Indirect Bilirubin 0.9 mg/dL AST 25 (5-40) units/L ALT 17 (7-56) units/L Alkaline Phosphatase 61 (35-129) units/L Total Protein 8.1 (6.3-8.2) g/dL Albumin 4.8 (3.9-5) g/dL Albumin/Globulin Ratio 1.5 % Lipase 22 (13-60) units/L labs/ua ordered NS/zofran/toradol CT pending pt removed by security for yelling, spitting, acting out Dr Rucker aware. Critical care attestation.: If time is entered above; I have spent that time in minutes in the direct care of this critically ill patient, excluding procedure time. ED Disposition Clinical Impression: Abdominal pain Qualifiers: Abdominal location: unspecified location Qualified Code(s): R10.9 - Unspecified abdominal pain Disposition: 07 LEFT AWOL/ELOPED Is pt being admited?: No Condition: Stable Instructions: Abdominal Pain (ED) Referrals: PRIMARY CARE, [Primary Care Provider] - 3-5 Days Time of Disposition: 11:11
[2022-05-08 10:16] LABS: Basophils % (Auto) 0.3 % (0.0-1.8); Hematocrit 37.9 % (30.3-42.9); Hemoglobin 13.1 gm/dl (10.1-14.3); Lymphocytes # (Auto) 1.1 K/mm3 (1.2-5.4); Lymphocytes % (Auto) 14.5 % (13.4-35.0); Mean Corpuscular HGB Conc 35 % (30-34); Mean Corpuscular Volume 90 fl (79-97); Monocytes # (Auto) 0.8 K/mm3 (0.0-0.8); Monocytes % (Auto) 10.4 % (0.0-7.3); Platelet Count 158 K/mm3 (140-440); Red Blood Count 4.19 M/mm3 (3.65-5.03)
[2022-05-08 11:08] LABS: Alanine Aminotransferase 17 units/L (7-56); Albumin 4.8 g/dL (3.9-5); Bilirubin,Direct 0.2 mg/dL (0-0.2); Blood Urea Nitrogen 25 mg/dL (7-17); Calcium 9.9 mg/dL (8.4-10.2); Hemolysis Index 8
[2022-05-08 11:15] LABS: BUN/Creatinine Ratio 36
== END 2022-05-08 10:55 | disposition left against medical advice (07) ==
LOC: ED 08:05
DX: R10.9 Unspecified abdominal pain (principal)
CPT/HCPCS: 80048; 80076; 83690; 85025; 96361; 96374; 96375; 99283; J1885; J2405; J7030